=== PATIENT | male | born 1935 | race Caucasian/White ===

== ENCOUNTER 2019-11-14 00:24 | Outpatient (CLI) | payer MEDICARE, BC, SELFPAY ==
[2019-11-14 17:00] LABS: SARS-CoV-2 RNA PCR Negative
== END 2019-11-14 00:25 | disposition home or self-care (01) ==
LOC: ANHCOVIDDT 00:24
PROVIDERS: PCP Internal Medicine; Visit Provider Surgery
DX: Z01.818 Encounter for other preprocedural examination (principal); Z11.59 Encounter for screening for other viral diseases
CPT/HCPCS: 87635; C9803; U0003

== ENCOUNTER 2019-11-16 00:22 | Day surgery (SDC) | payer MEDICARE, BC, SELFPAY ==
[2019-08-12 15:27] VITALS: BMI 23.6
--- NOTE | 2019-11-15 07:53 | PM.SD ---
Same Day Admit/Disch: HPI History of Present Illness Chief complaint: Right Inguinal Hernia Narrative: Joel Carmona is a 84 year old male Who back in July noticed a right groin bulge when coughing. He has some constipation and he is not sure if this has some role in that. Patient is very active, exercises at least 3 times a week including resistance training. He has chronic diastolic heart failure and a pacemaker, chronic kidney disease stage 3, hypertension. He is taken to surgery now for repair of his right inguinal hernia. The hernia is painful when he coughs and sometimes with other activities. [facility] Past Medical History Medical History GERD without esophagitis Mixed hyperlipidemia Surgical History Surgical History Hx of appendectomy 2001 Hx of cholecystectomy 2009 S/P internal cardiac defibrillator procedure 2019 most recent one has had 4 Family History Family History Mother Family history of diabetes mellitus in first degree relative Family history of coronary artery disease Family history unknown, Onset Age: 87 Father Family history of cardiovascular disease, Onset Age: 76 Diabetes mellitus Grandparent Family history unknown Social History Social History Smoking status: Never smoker Second hand tobacco smoke exposure: No Alcohol intake: current Gender identity (if verbalized by the patient): Male Same Day Admit/Disch: Med Pre-admit Medications Home Medications Medication Instructions Recorded Confirmed Type aspirin 81 mg tablet,delayed 81 mg PO DAILY 06/13/19 11/16/19 History release metoprolol succinate 50 mg 50 mg PO DAILY 06/13/19 11/16/19 History tablet,extended release 24 hr mexiletine 250 mg capsule 250 mg PO TID 06/13/19 11/16/19 History fluticasone propionate 50 2 spray NASAL DAILY #9.9 ml 06/14/19 11/16/19 Rx mcg/actuation nasal spray,suspension lovastatin 40 mg tablet 40 mg PO QPM #90 tablet 06/23/19 11/16/19 Rx levothyroxine 50 mcg tablet 50 mcg PO DAILY #90 tablet 07/12/19 11/16/19 Rx multivitamin 1 tablet PO DAILY 07/20/19 11/16/19 History hydrocodone-acetaminophen 1 - 2 tablet PO Q6H PRN #7 tablet 11/16/19 Rx ibuprofen 600 mg PO Q6H PRN #14 tablet 11/16/19 Rx Exam Const: General: comfortable, no acute distress, alert and awake HENMT: Head: normocephalic and atraumatic Mouth: Yes Normal oral and palatal mucosa present Eyes: Conjunctivae: conjunctivae normal Pupils: Equal, round and reactive pupils present EOM: EOMs intact bilaterally Neck: Neck: normal visual inspection, no lymphadenopathy and nontender Chest: Chest palpation & inspection: Pacemaker present Resp: Effort & Inspection: normal respiratory effort Auscultation: clear to auscultation bilaterally Cardio: Rate: regular rate Rhythm: regular rhythm Heart sounds: no gallops, no murmurs and no rubs GI: Inspection: non-distended GI Palp: Yes Soft to palpation, No Tenderness to palpation present (GI), No Hepatomegaly present and No Splenomegaly present : Male General Exam: Yes hernia ( right inguinal bulge, pulses with cough, tender) Penis: Yes normal penis Scrotum: scrotum normal Testes: Testes normal Skin: Lesions: no lesions Rashes: no rashes Neuro: General: no focal motor deficits and CN's II-XI intact bilaterally Cranial nerves: Yes Equal, round and reactive pupils present, Yes Bilaterally intact EOM present, Yes facial symmetry and Yes Midline tongue present Speech: normal speech Motor exam (neuro): 5/5 motor strength present throughout and Motor abnormalities not present Extrem: General: no clubbing, cyanosis or edema and edema Psych: Affect: normal affect Thought process: Normal thought process present Insight: Tobi
[2019-11-16] VITALS (10 sets, daily range): BP systolic 141–171; BP diastolic 52–94; PULSE 79–88; RESP 12–20; TEMP 35.9–36.6; O2SAT 97–99
--- NOTE | 2019-11-16 06:33 | ECG_ITS ---
Measurements Intervals [place] Rate: 86 P: 176 VA: 318 QRS: 3 QRSD: 169 T: 0 QT: 394 QTc: 474 Interpretive Statements ELECTRONIC ATRIAL PACEMAKER RIGHT BUNDLE BRANCH BLOCK ABNORMAL ECG Electronically Signed On 11-16-2019 7:03:34 CDT by Ben Sharma D.O.
[2019-11-16] MEDS: LACTATED RINGERS 1,000 ML 30 ML IV CONT (06:50)
--- NOTE | 2019-11-16 06:56 | WPDANESEPPF ---
Anes - Initial Pre Proc Eval Procedure: Operation Date: 11/16/19 07:30 Proposed Procedures p Right Inguinal Hernia Repair - Alden Wilkerson MD Date/Time: 11/16/19 06:56 Surgeon: Alden Wilkerson MD Pre Op Diagnosis: Right Inguinal Hernia Patient Data Age: 84 Gender: M Height: 1.73 m Weight: 70.31 kg Allergies Allergy/AdvReac Type Severity Reaction Status Date / Time amiodarone Allergy Intermediate shakes Verified 11/16/19 06:35 Home Medications Medication Instructions Recorded Confirmed Type aspirin 81 mg tablet,delayed 81 mg PO DAILY 06/13/19 11/16/19 History release metoprolol succinate 50 mg 50 mg PO DAILY 06/13/19 11/16/19 History tablet,extended release 24 hr mexiletine 250 mg capsule 250 mg PO TID 06/13/19 11/16/19 History fluticasone propionate 50 2 spray NASAL DAILY #9.9 ml 06/14/19 11/16/19 Rx mcg/actuation nasal spray,suspension lovastatin 40 mg tablet 40 mg PO QPM #90 tablet 06/23/19 11/16/19 Rx levothyroxine 50 mcg tablet 50 mcg PO DAILY #90 tablet 07/12/19 11/16/19 Rx multivitamin 1 tablet PO DAILY 07/20/19 11/16/19 History Patient hx anesthesia problems: none Family hx anesthesia problems: none PMFSH Past Medical History Medical History GERD without esophagitis Mixed hyperlipidemia Surgical History Surgical History Hx of appendectomy 2001 Hx of cholecystectomy 2009 S/P internal cardiac defibrillator procedure 2019 most recent one has had 4 Family History Family History Mother Family history of diabetes mellitus in first degree relative Family history of coronary artery disease Family history unknown, Onset Age: 87 Father Family history of cardiovascular disease, Onset Age: 76 Diabetes mellitus Grandparent Family history unknown Social History Social History Smoking status: Never smoker Second hand tobacco smoke exposure: No Alcohol intake: current Gender identity (if verbalized by the patient): Male Anes - Eval Final PreProcedure Day of Procedure 11/16/19 06:56 Patient weight: normal Heart: regular rate and rhythm Lungs: clear to auscultation and normal air movement Airway: Mallampati scale class II Neurological: alert and oriented Last oral intake: >/= 8 hours ASA classification: IV Emergent: no Anesthetic plan: proceed Anesthesia type and monitoring: general GIVS and standard monitoring Informed Consent: The patient's anesthetic plan and its attendant risks and benefits were discussed with the patient/family/POA. Questions were solicited and answers provided to the satisfaction of the patient/family/POA.
--- NOTE | 2019-11-16 06:58 | WPDHPUPDATE1 ---
History and Physical Update Update Date/Time: 11/16/19 06:58 History and Physical has been reviewed, including an updated exam of the patient. There are NO changes in the patient's condition. Risks, benefits, and alternatives have been discussed and questions answered. Patient agrees to proceed with procedure.
[2019-11-16] MEDS: ceFAZolin 2 GM/D5W 50 ML 2 GM/50 ML BAG IVPB (07:36)
--- NOTE | 2019-11-16 10:08 | SUR.PHASEII ---
1007 - dr. waterman in room talking with pt.
--- NOTE | 2019-11-16 10:11 | P.OP_ITS ---
Procedure Note - Detailed Date of procedure: 11/16/19 Pre-op diagnosis: Right Inguinal Hernia Right inguinal hernia Post-op diagnosis: other (Direct hernia) Procedure performed: Repair of Right inguinal hernia with 8 cm Parietex hernia mesh system Description of procedure: The patient was taken to surgery and IV sedation was administered. The right groin and genitalia were prepped and draped. Proposed incision was marked on the skin. Local was infiltrated into the skin and the deeper subcutaneous tissues. Incision was made and deepened through the subcutaneous. Crossing veins were cauterized and divided. Dissection was carried through Rossi's fascia down to the external oblique aponeurosis. The aponeurosis was exposed as was the external ring. Additional local anesthesia was infiltrated deep to the aponeurosis in the area of the spermatic cord and inguinal canal contents. The aponeurosis was opened laterally and extended medially through the external ring. The leaves of the aponeurosis were diss ected free from the spermatic cord. The ileoinguinal nerve was carefully preserved throughout the dissection and was left attached to the spermatic cord. The cord was then mobilized medially on a [place] drain. The cord was dissected back to the internal ring. Dissection was then carried out the hernia sac from the cord. This was a direct hernia near the inferior epigastric vessels. It was dissected back to its neck. The hernia sac was scored through the transversalis fascia circumferentially just above the neck. The sac was dunked into the retroperitoneum. A 8 centimeter Parietex [place] was chosen. It was folded to form a plug. It was placed in the defect. The edges were sutured to the transversalis fascia with interrupted 3 0 Vicryl suture. The hernia defect was then partially closed with some additional 3 0 Vicryl suture. Patch was then cut to the appropriate size and placed over the inguinal canal floor. The lateral leaves were passed beyond the cord. The cord and ileoinguinal nerve were then laid over the patch. The external oblique aponeurosis was closed with interrupted 3 0 Vicryl suture. Rossi's fascia was closed with interrupted 3 0 Vicryl suture. The subcutaneous was closed with interrupted 4 0 Vicryl suture. Four 0 Vicryl subcuticular skin sutures were placed. The skin was closed finally with a running 4 0 Monocryl skin suture. The wound was dressed with Exofin surgical adhesive. The patient was awakened and taken to recovery in good condition. Sponge and needle counts were correct x2. Implants: 8 cm Parietex hernia mesh Anesthesia: MAC and local (0.5% Marcaine with Exparel) Surgeon: Alden Wilkerson MD Airways Control Specialist: Davian HARGROVE Estimated blood loss (mL): 5 Drains: No Packing: No Pathology: none sent Complications: None Condition: stable Disposition: PACU Findings: Diirect inguinal hernia. No sliding hernia was noted.
--- NOTE | 2019-11-16 10:22 | SUR.PHASEII ---
1015 - daughter updated on pt's status. will continue to monitor rt side leg weakness. dr. guevara arizmendi.
--- NOTE | 2019-11-16 11:07 | SUR.PHASEII ---
1100 - pt assisted to bathroom. rt leg still slightly weak. will continue to monitor. 1107 - daughter called with update.
--- NOTE | 2019-11-16 14:23 | SUR.PHASEII ---
1300 - dr. waterman updated. pt okay to go home.
== END 2019-11-16 13:50 | disposition home or self-care (01) ==
PROVIDERS: PCP Internal Medicine; Visit Provider Surgery
PROC: (CPT 49505; principal; 2019-11-16 07:30)
DX: K40.90 Unilateral inguinal hernia, without obstruction or gangrene, not specified as recurrent (principal); E78.2 Mixed hyperlipidemia; K21.9 Gastro-esophageal reflux disease without esophagitis; I47.2 Ventricular tachycardia; I13.0 Hypertensive heart and chronic kidney disease with heart failure and stage 1 through stage 4 chronic kidney disease, or unspecified chronic kidney disease; N18.3 Chronic kidney disease, stage 3 (moderate); I50.9 Heart failure, unspecified; D64.9 Anemia, unspecified; M48.061 Spinal stenosis, lumbar region without neurogenic claudication; Z95.810 Presence of automatic (implantable) cardiac defibrillator; Z79.82 Long term (current) use of aspirin
CPT/HCPCS: 49505; 93005; A9270; C1781; C9290; J0690; J1100; J2405; J2704; J3010; J7120

== ENCOUNTER → 2021-09-21 00:12 | Outpatient (CLI) | payer MEDICARE, BC, SELFPAY ==
[2021-09-21 14:09] LABS: Influenza A QL RT-PCR Negative (Negative); Influenza B QL RT-PCR Negative (Negative); SARS-CoV-2 RNA PCR Negative
== END ==
PROVIDERS: PCP Family Medicine; Visit Provider Family Medicine
DX: R68.89 Other general symptoms and signs (principal); Z20.822 Contact with and (suspected) exposure to COVID-19
CPT/HCPCS: 87502; C9803; U0003; U0005

== ENCOUNTER 2021-12-12 13:42 | Outpatient (CLI) | payer MEDICARE, BC, SELFPAY ==
--- NOTE | ~2021-12-12 | CT_ITS ---
EXAMINATION: CT cervical spine wo con DATE: 12/12/2021 14:02 INDICATION: New right arm radicular nerve pain and weakness TECHNIQUE: Computed tomography (CT) of the cervical spine was performed without intravenous contrast. Automated exposure control and iterative reconstruction technique were employed. Exam dose: 275.70 mGy-cm total exam DLP. COMPARISON: None FINDINGS: There is dextroscoliosis and reversal of cervical curvature. C1 and C2 are normally aligned and the odontoid process is intact. There is mild to moderate degenerative disc disease at C2-3. There is mild degenerative disc disease and minimal anterolisthesis at C3-4. There is mildly severe degenerative disc disease and minimal anterolisthesis at C4-5. There is severe degenerative disc disease and 1.8 mm retrolisthesis at C5-6. There is severe degenerative disc disease at C6-7 and moderate degenerative disc disease at C7-T1. There is prominent degenerative changes apophyseal joints, producing severe on the left at C2-3, C3- 4 and C4-5. There is uncovertebral joint spurring throughout the cervical spine, particularly severe on the right at C5-6.. IMPRESSION: Levoscoliosis and reversal cervical curvature Multilevel degenerative disc disease throughout the cervical spine, most severe at C5-6 and C6-7, wit h 1.8 mm retrolisthesis at C5-6 Prominent degenerative change at the apophyseal and uncovertebral joints throughout the cervical spin e, the apophyseal joint spurring particularly prominent on the left at C2-3, C3-C4 and C4-5, the unco vertebral joint spurring most prominent on the right at C5-6 Reviewed, dictated and finalized at [facility]. Reviewed, dictated and finalized at [facility]. IMPRESSION: Levoscoliosis and reversal cervical curvature Multilevel degenerative disc disease throughout the cervical spine, most severe at C5-6 and C6-7, with 1.8 mm retrolisthesis at C5-6 Prominent degenerative change at the apophyseal and uncovertebral joints throug hout the cervical spine, the apophyseal joint spurring particularly prominent o n the left at C2-3, C3-C4 and C4-5, the uncovertebral joint spurring most promi nent on the right at C5-6
== END 2021-12-12 13:43 | disposition home or self-care (01) ==
PROVIDERS: PCP Family Medicine; Visit Provider Family Medicine
DX: M47.813 Spondylosis without myelopathy or radiculopathy, cervicothoracic region (principal); M79.2 Neuralgia and neuritis, unspecified
CPT/HCPCS: 72125

== ENCOUNTER 2022-04-08 08:47 | Outpatient (CLI) | payer MEDICARE, BC, SELFPAY | END 2022-04-08 08:48 | disposition home or self-care (01) | LOC: ANHAUDIO 08:49 | PROVIDERS: PCP Family Medicine; Visit Provider Family Medicine | DX: H90.3 Sensorineural hearing loss, bilateral (principal) | CPT/HCPCS: 92557; 92567 ==

== ENCOUNTER 2022-08-12 13:38 | Outpatient (CLI) | payer MEDICARE, BC, SELFPAY | END 2022-08-12 13:39 | disposition home or self-care (01) | LOC: ANHGOSHLAB 13:40 | PROVIDERS: PCP Family Medicine; Visit Provider Family Medicine | DX: E03.9 Hypothyroidism, unspecified (principal); Z13.29 Encounter for screening for other suspected endocrine disorder | CPT/HCPCS: 36415; 84443 ==

== ENCOUNTER 2022-09-24 07:50 | Emergency (ER) | payer MEDICARE, BC, SELFPAY ==
[2022-09-24] VITALS (13 sets, daily range): BP systolic 161–168; BP diastolic 82–105; PULSE 80–91; RESP 14–24; TEMP 36.4; O2SAT 89–100
--- NOTE | ~2022-09-24 | XR_ITS ---
EXAMINATION: XR lumbar spine 2-3V DATE: 09/24/2022 08:49 INDICATION: Low back pain. TECHNIQUE: 3 views of lumbar spine were obtained. COMPARISON: Chest 2 views 09/02/2018, CT lumbar spine 10/16/2016 FINDINGS: There is 12 degrees dextroscoliosis of lumbar spine. Vertebral body heights are normal. S1 is a transitional segment. There is mildly decreased disc height at L3-L4, moderately decreased disc height at L4-L5, and severely decreased disc height at L5-S1 and S1-S2. There is multilevel severe fa cet joint osteoarthritis. Surgical clips in the right upper quadrant are likely from cholecystectomy. IMPRESSION: 1. Severe lumbar spondylosis. 2. Lumbar dextroscoliosis. Reviewed, dictated and finalized at location A.
[2022-09-24] MEDS: ACETAMINOPHEN 325 MG TABLET 650 MG PO (08:46)
--- NOTE | 2022-09-24 10:22 | ED.BACK ---
HPI - Back Pain/Injury General Chief Complaint: Back Pain/Injury Stated Complaint: flank pain Time Seen by Provider: 09/24/22 08:05 History of Present Illness HPI Narrative: Patient is an 87-year-old male who presents ER with low back pain. Began yesterday. Takes Tylenol for pain without improvement. No fevers or chills or sweats. Denies trauma. No numbness or tingling to his legs or groin. No weight loss. Denies alleviating factors other than rest. Symptoms are worsened with physical movements. Denies any urinary complaints for me but did report some urgency for triage nurse. Patient has bruising to his right lower back but not his left back where he is having his pain. Related Data Home Medications Medication Instructions Recorded Confirmed aspirin 81 mg tablet,delayed 81 mg PO DAILY 06/13/19 08/12/22 release (Adult Aspirin Regimen) mexiletine 250 mg capsule 250 mg PO TID 06/13/19 08/12/22 multivitamin (Multiple Vitamins 1 tablet PO DAILY 07/20/19 08/12/22 tablet) lovastatin 40 mg tablet 40 mg PO QHS 08/12/22 08/12/22 metoprolol succinate 50 mg 25 mg PO DAILY 08/12/22 08/12/22 tablet,extended release 24 hr Allergies Allergy/AdvReac Type Severity Reaction Status Date / Time amiodarone Allergy Intermediate shakes Verified 09/24/22 07:55 Review of Systems Constitutional: Constitutional: Denies chills and Denies fever(s) Gastrointestinal: Gastrointestinal: Denies abdominal pain, Denies nausea and Denies vomiting Genitourinary: Genitourinary: Reports as per HPI Musculoskeletal: Musculoskeletal: Reports back pain, Denies arthralgias and Denies joint swelling Integumentary/Breasts: Skin/Breast: Denies erythema and Denies rash Neurologic: Denies focal weakness and Denies numbness [facility] Past Medical History Medical History BMI 22.0-22.9, adult Cardiac arrhythmia CHF (congestive heart failure) CKD (chronic kidney disease) GERD without esophagitis History of ventricular tachycardia HTN (hypertension) Hypothyroidism (acquired) Mixed hyperlipidemia Nephropathy RITA on CPAP Pacemaker Right inguinal hernia Surgical History Surgical History History of right inguinal hernia 11/16/19 Hx of appendectomy 2002 Hx of cholecystectomy 2009 S/P internal cardiac defibrillator procedure 2019 most recent one has had 4 Family History Family History Mother Family history of diabetes mellitus in first degree relative Family history of coronary artery disease Family history unknown, Onset Age: 87 Father Family history of cardiovascular disease, Onset Age: 76 Diabetes mellitus Grandparent Family history unknown Social History Social History Smoking status: Former smoker Second hand tobacco smoke exposure: No Alcohol intake: current Lack of Transportation: No Lack of Food: Never True Current Housing: I Have Housing Concerned About Future Housing: No Difficulty Paying Gas/Electric Bills: No Difficulty Paying for Meds: No Currently Unemployed: No Education: High School Diploma/GED Difficulty w/ Childcare or Family Care: No Living arrangements: alone Occupation/Education: retired Gender identity (if verbalized by the patient): Male Exam Narrative: GENERAL: Well-appearing, well-nourished, and in no acute distress. HEAD: Normocephalic, atraumatic. CHEST: Clear to auscultation. No respiratory distress. HEART: Regular rate and rhythm. Normal peripheral pulses. ABDOMEN: Soft, nontender, nondistended. Back: No reproducible midline tenderness of the T/L-spine. There is some lateral low back pain in the level of L2 on the left side without bruising or abrasion. There is a older bruise with yellowing to the right lower back
== END 2022-09-24 11:07 | disposition home or self-care (01) ==
PROVIDERS: Emergency Provider Emergency Medicine; PCP Family Medicine
DX: M54.50 Low back pain, unspecified (principal); I50.9 Heart failure, unspecified; I13.0 Hypertensive heart and chronic kidney disease with heart failure and stage 1 through stage 4 chronic kidney disease, or unspecified chronic kidney disease; N18.9 Chronic kidney disease, unspecified; E03.9 Hypothyroidism, unspecified; E78.2 Mixed hyperlipidemia; K21.9 Gastro-esophageal reflux disease without esophagitis; G47.33 Obstructive sleep apnea (adult) (pediatric); Z90.49 Acquired absence of other specified parts of digestive tract; Z95.810 Presence of automatic (implantable) cardiac defibrillator; Z87.891 Personal history of nicotine dependence; Z79.82 Long term (current) use of aspirin; M47.816 Spondylosis without myelopathy or radiculopathy, lumbar region
CPT/HCPCS: 72100; 99283; A9270

== ENCOUNTER 2022-09-24 19:22 | Inpatient (IN) | payer MEDICARE, BC, SELFPAY ==
--- NOTE | ~2022-09-24 | CT_ITS ---
EXAMINATION: CTA chest abdomen pelvis DATE: 09/24/2022 22:17 INDICATION: Lower back pain . TECHNIQUE: Computed tomography (CT) of the chest, abdomen, and pelvis was performed with 100 mL Omnip aque-350 intravenous contrast, with arterial timing. Volume rendered images performed by the celi stewart on a separate workstation. Automated exposure control and iterative reconstruction technique wer e employed. The dose-length product was 573.07 mGy-cm. COMPARISON: HRCT 08/06/2009 CT abdomen 04/21/2008 FINDINGS: CHEST: Thoracic aorta: No significant dilation. Mild arch calcification. Lung parenchyma and airways: Senescent changes. Calcified pulmonary granulomas. Dependent atelectasis /basilar scar. Thoracic inlet, axillae and chest wall: No thyroid or soft tissue mass. No axillary lymphadenopathy. Left-sided pacemaker. Mediastinum: No mass or lymphadenopathy. Heart and pericardium: Cardiomegaly. No pericardial effusion. Coronary artery calcifications: Mild. Pleura: No effusion or mass. Thoracic bones: No acute osseous finding in the chest. ABDOMEN/PELVIS: Liver: Normal. Biliary/Gallbladder: Gallbladder is absent. No bile duct dilation. Pancreas: Fatty infiltration Spleen: Normal. Adrenals:No mass. Kidneys: Bilateral cortical thinning. Nonobstructing right lower pole punctate calcification. Mild le ft hydronephrosis with periureteral stranding and stranding at the renal hilum and renal pelvis. Bila teral perinephric stranding, greater on the left. Subtle delayed nephrogram or patchy cortical enhanc ement in the left kidney. GI tract: Distal esophageal and gastric wall edema No small or large bowel dilation. Appendix not vis ualized, likely surgically absent. Diverticulosis without diverticulitis. Mesentery/Peritoneum: No ascites, mass, or free air. Retroperitoneum: No mass Atherosclerotic abdominal aortic and/or arterial calcifications. Severe sten osis of the proximal celiac artery. Severe short segment stenosis of the left renal artery. The right kidney is supplied by 3 accessory arteries, two of which have severe stenoses. Severe stenosis of th e proximal FITZ. Pelvis: Prostatomegaly. Anterior and superiorly directed outpouching off to the urinary bladder may r epresent a bladder diverticulum or urachal remnant. Mild bladder wall thickening Soft Tissues: Soft tissues and body wall unremarkable. Abdominopelvic bones: No acute osseous finding in the abdomen/pelvis. IMPRESSION: No aortic dissection or aneurysm. Esophagitis/gastritis. Mild left hydronephrosis with inflammatory c hanges of the left kidney and collecting system, concerning for ascending infection and pyelonephriti s. Significant arterial stenoses in the celiac artery, bilateral renal arteries, and inferior mesente wilma artery. Reviewed, dictated and finalized at location K. IMPRESSION: No aortic dissection or aneurysm. Esophagitis/gastritis. Mild left hydronephros is with inflammatory changes of the left kidney and collecting system, concerni ng for ascending infection and pyelonephritis. 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
[2022-09-24 19:25] VITALS: BP 138/92; PULSE 86; RESP 19; TEMP 36.4; O2SAT 95
[2022-09-24 20:46] LABS: Basophils Absolute Auto 0.1 K/mm3 (0.0-0.1); Basophils Percent Auto 0.4 % (0.2-1.2); Eosinophils Absolute Auto 0.1 K/mm3 (0-0.3); Eosinophils Percent Auto 0.6 % (0-4.4); Hematocrit 43.6 % (42.0-52.0); Hemoglobin 14.2 g/dL (14.0-18.0); Immature Granulocyte Absolute 0.06 K/mm3 (0.00-0.031); Immature Granulocyte Percent A 0.5 % (0-0.5); Lymphocytes Absolute Auto 1.34 K/mm3 (0.9-3.2); Lymphocytes Percent Auto 10.5 % (18.3-44.2); Mean Corpuscular HGB Conc 32.6 g/dl (32-36); Mean Corpuscular Hemoglobin 31.1 pg (26-34); Mean Corpuscular Volume 95.4 fl (80-100); Mean Platelet Volume 9.6 fl (7.4-10.4); Monocytes Absolute Auto 1.6 K/mm3 (0.1-0.6); Monocytes Percent Auto 12.6 % (2.6-8.5); Neutrophils Absolute Auto 9.6 K/mm3 (1.3-6.7); Neutrophils Percent Auto 75.4 % (45.5-73.1); Platelet Count Result 201 k/mm3 (150-375); Red Blood Count 4.57 M/mm3 (4.6-6.20); Red Cell Distribution Width 13.5 % (11.5-14.5); White Blood Count 12.7 K/mm3 (4.5-10.0)
[2022-09-24 20:57] LABS: INR 1.2; Partial Thromboplastin Time 32.1 SECONDS (22.3-36.8)
--- NOTE | 2022-09-24 21:01 | ED.GENADULT ---
HPI - General Adult General Chief complaint: Back Pain/Injury Stated complaint: back pain Time Seen by Provider: 09/24/22 19:45 History of Present Illness HPI narrative: This is an 87-year-old male presenting with lower back pain. He was seen and evaluated in emergency department earlier today and discharged with symptomatic treatment. Patient filled his prescriptions around 2 and took the medication but still had some pain. patient says his pain started 2 nights ago while he was sitting in her climber. Is an achy pain in the left lower back that is nonradiating, 9/10 intensity and comes and goes. He has never experienced pain like this before And there are no alleviating factors. He says it is hard for him to lay still in bed for more than 3-5 minutes at a time. Denies fevers, trauma, urinary difficulty or bowel incontinence. Related Data Home Medications Medication Instructions Recorded Confirmed aspirin 81 mg tablet,delayed 81 mg PO DAILY 06/13/19 08/12/22 release (Adult Aspirin Regimen) mexiletine 250 mg capsule 250 mg PO TID 06/13/19 08/12/22 multivitamin (Multiple Vitamins 1 tablet PO DAILY 07/20/19 08/12/22 tablet) lovastatin 40 mg tablet 40 mg PO QHS 08/12/22 08/12/22 metoprolol succinate 50 mg 25 mg PO DAILY 08/12/22 08/12/22 tablet,extended release 24 hr Allergies Allergy/AdvReac Type Severity Reaction Status Date / Time amiodarone Allergy Intermediate shakes Verified 09/24/22 07:55 [facility] Past Medical History Medical History BMI 22.0-22.9, adult Cardiac arrhythmia CHF (congestive heart failure) CKD (chronic kidney disease) GERD without esophagitis History of ventricular tachycardia HTN (hypertension) Hypothyroidism (acquired) Mixed hyperlipidemia Nephropathy RITA on CPAP Pacemaker Right inguinal hernia Surgical History Surgical History History of right inguinal hernia 11/16/19 Hx of appendectomy 2002 Hx of cholecystectomy 2009 S/P internal cardiac defibrillator procedure 2019 most recent one has had 4 Family History Family History Mother Family history of diabetes mellitus in first degree relative Family history of coronary artery disease Family history unknown, Onset Age: 87 Father Family history of cardiovascular disease, Onset Age: 76 Diabetes mellitus Grandparent Family history unknown Social History Social History Smoking status: Former smoker Second hand tobacco smoke exposure: No Alcohol intake: current Lack of Transportation: No Lack of Food: Never True Current Housing: I Have Housing Concerned About Future Housing: No Difficulty Paying Gas/Electric Bills: No Difficulty Paying for Meds: No Currently Unemployed: No Education: High School Diploma/GED Difficulty w/ Childcare or Family Care: No Living arrangements: alone Occupation/Education: retired Gender identity (if verbalized by the patient): Male Exam Narrative: APPEARANCE: No apparent distress. Head: atraumatic. EYES: EOMI, NOSE: Atraumatic NECK: Trachea midline RESPIRATORY: No increased rate of breathing CARDIOVASCULAR: RRR, ABDOMINAL: Abdomen is soft nontender no guarding or rebound. No palpable masses MUSCULOSKELETAl: no tenderness to palpation along the spine. No tenderness along the sacroiliac junction or lower back. Straight leg was negative on both sides. No pain on range of motion of the hips or knees. NEURO: Alert. Moving 4/4 extremities SKIN:: Warm, dry. Normal color PSYCHIATRIC: Normal affect Course Vital Signs Vital signs: Vital Signs Temperature 97.6 F 09/24/22 19:25 Pulse Rate 86 09/24/22 19:25 Respiratory Rate 09/24/22 19:25 Blood Pressure 138/92 H 09/24/22 19:25 Puls
[2022-09-24 21:03] LABS: Lactic Acid Reflex 2.2 mmol/L (0.7-2.0)
[2022-09-24 21:34] LABS: Alanine Aminotransferase 43 U/L (6-50); Albumin Level 4.2 g/dL (3.5-5.1); Alkaline Phosphatase 134 U/L (38-126); Anion Gap 8 mmol/L (8-16); Aspartate Amino Transferase 54 U/L (17-59); Bilirubin,Total 1.3 mg/dL (0.2-1.3); Blood Urea Nitrogen 39 mg/dL (9-20); Calcium 8.8 mg/dL (8.4-10.2); Carbon Dioxide 24 mmol/L (22-30); Chloride 105 mmol/L (98-107); Estimated CRCL calculation 30 ml/min; Estimated Glomerular Filt Rate 44; Glucose 98 mg/dL (65-110); Lipase 111 U/L (23-300); Magnesium 2.3 mg/dL (1.6-2.3); Potassium 4.8 mmol/L (3.4-5.0); Sodium 137 mmol/L (137-145)
[2022-09-24 22:07] LABS: Appearance Urine Cloudy (Clear); Bacteria Urine None Seen /hpf; Bilirubin Urine Negative (Negative); Blood Urine 3+ (Negative); Color Urine Yellow (Yellow); Glucose Urine UA Negative (Negative); Hyaline Casts Urine Present /lpf; Ketones Urine Negative (Negative); Leukocyte Esterase Ur 1+ LEU/UL (Negative); Nitrate Urine Negative (Negative); Non Pathogenic Casts 0-2; Protein Urine 1+ mg/dL (Negative); RBC Urine >100 /hpf (0-2); Specific Grav Ur 1.017 (1.001-1.035); Squamous Epithelial Cell Urine Occasional /hpf (Few); Urobilinogen Urine 0.2 mg/dL (<2.0); WBC Urine 0-5 /hpf
[2022-09-24 22:14] LABS: Add Urine Microscopic? YES
--- NOTE | 2022-09-24 22:57 | PM.IMHP ---
H&P: HPI History of Present Illness Date/Time: 09/24/22 22:57 Chief Complaint: Flank pain Narrative: This is an 87-year-old male with past medical history significant for congestive heart failure, chronic kidney disease, GERD, hypertension, hypothyroidism. Patient presents to the emergency room due to left flank pain, fevers, chills, generalized malaise, body aches and pains. Preliminary workup was significant for urinalysis with numerous RBCs present. A CT of chest abdomen and pelvis was reported as: EXAMINATION: CTA chest abdomen pelvis DATE: 09/24/2022 22:17 INDICATION: Lower back pain . TECHNIQUE: Computed tomography (CT) of the chest, abdomen, and pelvis was performed with 100 mL Omnipaque-350 intravenous contrast, with arterial timing. Volume rendered images performed by the technologist on a separate workstation. Automated exposure control and iterative reconstruction technique were employed. The dose-length product was 573.07 mGy-cm. COMPARISON: HRCT 08/06/2009 CT abdomen 04/21/2008 FINDINGS: CHEST: Thoracic aorta: No significant dilation. Mild arch calcification. Lung parenchyma and airways: Senescent changes. Calcified pulmonary granulomas. Dependent atelectasis/basilar scar. Thoracic inlet, axillae and chest wall: No thyroid or soft tissue mass. No axillary lymphadenopathy. Left-sided pacemaker. Mediastinum: No mass or lymphadenopathy. Heart and pericardium: Cardiomegaly. No pericardial effusion. Coronary artery calcifications: Mild. Pleura: No effusion or mass. Thoracic bones: No acute osseous finding in the chest. ABDOMEN/PELVIS: Liver: Normal.? Biliary/Gallbladder: Gallbladder is absent. No bile duct dilation. Pancreas: Fatty infiltration Spleen: Normal. Adrenals:No mass. Kidneys: Bilateral cortical thinning. Nonobstructing right lower pole punctate calcification. Mild left hydronephrosis with periureteral stranding and stranding at the renal hilum and renal pelvis. Bilateral perinephric stranding, greater on the left. Subtle delayed nephrogram or patchy cortical enhancement in the left kidney. GI tract: Distal esophageal and gastric wall edema No small or large bowel dilation. Appendix not visualized, likely surgically absent. Diverticulosis without diverticulitis. Mesentery/Peritoneum: No ascites, mass, or free air. Retroperitoneum: No mass Atherosclerotic abdominal aortic and/or arterial calcifications. 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 Severe short segment stenosis of the left renal artery. The right kidney is supplied by 3 accessory arteries, two of which have severe stenoses. Severe stenosis of the proximal FITZ. Pelvis: Prostatomegaly. Anterior and superiorly directed outpouching off to the urinary bladder may represent a bladder diverticulum or urachal remnant. Mild bladder wall thickening Soft Tissues: Soft tissues and body wall unremarkable. Abdominopelvic bones:? No acute osseous finding in the abdomen/pelvis. IMPRESSION: No aortic dissection or aneurysm. Esophagitis/gastritis. Mild left hydronephrosis with inflammatory changes of the left kidney and collecting system, concerning for ascending infection and pyelonephritis. 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 Review of Systems Review of Systems: Left flank pain, generalized malaise, fevers, rigors, chills. Constitutional: Constitutional: Reports chills, Denies fatigue, Reports fever(s), Denies lethargy, Reports malaise, Denies night sweats, Reports poor appetite and Reports weakness Eyes: Eyes: Denies change in vision ENT: Denies dysphagia and Denies odynophagia Cardiovascular: Cardiovascular: Denies chest pain, Denies radiating jaw, neck or arm pain and Denies palpitations Respiratory: Respiratory: Denies chest congestion, Denies cough, Denies pain on inspiration and Denies dyspnea Gastrointestinal: Gastrointestinal: Denies abdominal pain, Denies dyspepsia, Wilfred
[2022-09-24] MEDS: SODIUM CHLORIDE 0.9% IV 2,000 ML 999 ML IV CONT (23:03)
[2022-09-24 23:43] LABS: Reflex Lactic Acid Yes or No Add Lactic
[2022-09-24 23:55] VITALS: BP 130/96; PULSE 84; RESP 16; O2SAT 98
--- NOTE | 2022-09-25 00:26 | ADMGEN ---
This patient, Joel Carmona, was admitted to 3 Med Surg Room 326-01. Patient/family oriented to hospital policies and general routines including ID bracelet, bed and alarms, visiting hours, pain management, procedures, bathroom and other care routines, personal items, smoking policy, room service/diet, and visiting hours. Information on how to activate the Rapid Response Team has been discussed. Patient/Family are encouraged to report perceived risks to care and to ask questions if they do not understand what they are told or what they should do.
[2022-09-25 00:29] VITALS: BP 140/66; PULSE 94; RESP 16; TEMP 36.1; O2SAT 100; BMI 21.9
[2022-09-25 01:21] LABS: Lactic Acid 1.3 mmol/L (0.7-2.0)
[2022-09-25 05:49] VITALS: BP 132/95; PULSE 88; RESP 18; TEMP 36.4; O2SAT 98
[2022-09-25] MEDS: LEVOTHYROXINE SODIUM 50 MCG TABLET PO (05:53)
[2022-09-25] MEDS: cycloSPORINE 0.4 ML OPHTH SOLUTION 1 DROP EACH EYE ×2 (08:42→20:13)
[2022-09-25 08:43] VITALS: PULSE 81
[2022-09-25] MEDS: ASPIRIN 81 MG ENTERIC TABLET PO (08:43)
[2022-09-25] MEDS: METOPROLOL SUCCINATE EXT REL 25 MG TABCR PO (08:43)
[2022-09-25 14:00] VITALS: BP 131/64; PULSE 79; RESP 18; TEMP 36.4; O2SAT 100
--- NOTE | 2022-09-25 14:44 | PM.IMPN ---
Progress Note: A&P Assessment and Plan (1) Pyelonephritis: Code(s): N12 - Tubulo-interstitial nephritis, not specified as acute or chronic Status: Acute Assessment and Plan: CTA of the abdomen showed mild left hydronephrosis with Faby ureteral stranding and stranding at the renal hilum and pelvis. Also with bilateral perinephric stranding greater on the left. Patchy cortical enhancement left kidney. Urinalysis showed 3+ blood and greater than 100 red cells. No white cells but 1+ 2+ esterase. He was started on Rocephin for possible pyelonephritis. No urine culture was obtained. No blood cultures obtained. Will add urine culture but patient already been on antibiotics so unclear if this would be helpful. No fevers but white count was elevated on admission at 12.7 K. He has chronic CKD and creatinine here is 1.5 on admission. Old values from 2018 but nothing more recent. Probably at baseline. Will continue to trend. (2) CKD (chronic kidney disease): Qualifiers: Chronic kidney disease stage: stage 3 (moderate) Qualified Code(s): N18.3 - Chronic kidney disease, stage 3 (moderate) Code(s): N18.9 - Chronic kidney disease, unspecified Status: Chronic Assessment and Plan: As above. Creatinine 1.5 on admission. Continue to trend. (3) CHF (congestive heart failure): Qualifiers: Heart failure type: unspecified Heart failure chronicity: unspecified Qualified Code(s): I50.9 - Heart failure, unspecified Code(s): I50.9 - Heart failure, unspecified Status: Chronic Assessment and Plan: Patient has a history of CHF. No old Echo reports listed. Euvolemic. Follow. (4) RITA on CPAP: Code(s): G47.33 - Obstructive sleep apnea (adult) (pediatric); Z99.89 - Dependence on other enabling machines and devices Status: Acute Assessment and Plan: CPAP at nighttime. Order auto-CPAP (5) HTN (hypertension): Qualifiers: Hypertension type: essential hypertension Qualified Code(s): I10 - Essential (primary) hypertension Code(s): I10 - Essential (primary) hypertension Status: Chronic Assessment and Plan: Patient's blood pressure was reviewed on 09/25 Blood pressure remains well controlled. Will continue current medications. (6) Spinal stenosis: Qualifiers: Spinal region: lumbar Neurogenic claudication status: without neurogenic claudication Qualified Code(s): M48.061 - Spinal stenosis, lumbar region without neurogenic claudication Code(s): M48.00 - Spinal stenosis, site unspecified Status: Acute Assessment and Plan: Unchanged. Fall risk precautions. PT/OT (7) GERD without esophagitis: Code(s): K21.9 - Gastro-esophageal reflux disease without esophagitis Status: Acute Assessment and Plan: Imaging showing distal esophageal and gastric wall edema - possible esophagitis/gastritis. 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 Continue to monitor (9) PAD (peripheral artery disease): Code(s): I73.9 - Peripheral vascular disease, unspecified Status: Acute Assessment and Plan: CTA shows severe stenosis of the proximal celiac artery, severe short segment stenosis of the left renal artery, 2/3 right renal artery stenosis, severe stenosis of the proximal FITZ. Continue ASA. LFTs okay so will add Lipitor. Subjective Date/time seen: 09/25/22 14:44 Interval history: 87yo male with CHF, CKD, RITA and HTN here for left falnk pain found to have pyelonephritis. Pain is much improved. No chest pain shortness of breath. No dysuria or hematuria. Exam Narrative: AF 97.5 131/64 79 18 100% ra Gen -
--- NOTE | 2022-09-25 16:13 | PCRCNOTE ---
Patient has not worn home CPAP in 4 years & does not wish to use our unit.
[2022-09-25 16:45] VITALS: PULSE 91
[2022-09-25] MEDS: MEXILETINE HCL 200 MG CAPSULE PO (16:45)
[2022-09-25] MEDS: PANTOPRAZOLE 40 MG TABLET PO (20:14)
[2022-09-25 21:21] VITALS: BP 111/61; PULSE 79; RESP 16; TEMP 36.6; O2SAT 97
[2022-09-26 05:37] VITALS: BP 122/59; PULSE 83; RESP 16; TEMP 36.3; O2SAT 99
[2022-09-26] MEDS: LEVOTHYROXINE SODIUM 50 MCG TABLET PO (06:33)
[2022-09-26 06:51] LABS: Basophils Percent Auto 0.5 % (0.2-1.2); Eosinophils Absolute Auto 0.3 K/mm3 (0-0.3); Eosinophils Percent Auto 3.5 % (0-4.4); Hematocrit 40.2 % (42.0-52.0); Hemoglobin 12.9 g/dL (14.0-18.0); Immature Granulocyte Absolute 0.03 K/mm3 (0.00-0.031); Immature Granulocyte Percent A 0.4 % (0-0.5); Lymphocytes Absolute Auto 1.43 K/mm3 (0.9-3.2); Lymphocytes Percent Auto 18.3 % (18.3-44.2); Mean Corpuscular HGB Conc 32.1 g/dl (32-36); Mean Corpuscular Volume 96.6 fl (80-100); Mean Platelet Volume 9.6 fl (7.4-10.4); Monocytes Percent Auto 13.3 % (2.6-8.5); Platelet Count Result 161 k/mm3 (150-375); Red Blood Count 4.16 M/mm3 (4.6-6.20); Red Cell Distribution Width 13.7 % (11.5-14.5); White Blood Count 7.8 K/mm3 (4.5-10.0)
[2022-09-26 07:59] LABS: Albumin Level 3.3 g/dL (3.5-5.1); Anion Gap 3 mmol/L (8-16); Blood Urea Nitrogen 28 mg/dL (9-20); Calcium 8.6 mg/dL (8.4-10.2); Carbon Dioxide 28 mmol/L (22-30); Chloride 108 mmol/L (98-107); Estimated CRCL calculation 36 ml/min; Estimated Glomerular Filt Rate 57; Glucose 82 mg/dL (65-110); Magnesium 2.1 mg/dL (1.6-2.3); Phosphorus 3.2 mg/dL (2.5-4.5); Potassium 4.6 mmol/L (3.4-5.0); Sodium 139 mmol/L (137-145)
[2022-09-26 09:02] VITALS: PULSE 80
[2022-09-26] MEDS: METOPROLOL SUCCINATE EXT REL 25 MG TABCR PO (09:02)
[2022-09-26 09:03] VITALS: PULSE 80
[2022-09-26] MEDS: PANTOPRAZOLE 40 MG TABLET PO (09:03)
[2022-09-26] MEDS: cycloSPORINE 0.4 ML OPHTH SOLUTION 1 DROP EACH EYE (09:03)
[2022-09-26] MEDS: ASPIRIN 81 MG ENTERIC TABLET PO (09:03)
[2022-09-26] MEDS: ATORVASTATIN 40 MG TABLET PO (09:03)
[2022-09-26] MEDS: MEXILETINE HCL 200 MG CAPSULE PO ×2 (09:03→12:16)
[2022-09-26 12:16] VITALS: PULSE 79
--- NOTE | 2022-09-26 13:05 | PM.DS ---
DS: Admitting Diagnosis Discharge Date 09/26/22 Admitting Diagnosis Flank pain DS: Discharge Diagnosis Discharge Diagnosis (1) Pyelonephritis: Code(s): N12 - Tubulo-interstitial nephritis, not specified as acute or chronic Status: Acute (2) CKD (chronic kidney disease): Qualifiers: Chronic kidney disease stage: stage 3 (moderate) Qualified Code(s): N18.3 - Chronic kidney disease, stage 3 (moderate) Code(s): N18.9 - Chronic kidney disease, unspecified Status: Chronic (3) CHF (congestive heart failure): Qualifiers: Heart failure type: unspecified Heart failure chronicity: unspecified Qualified Code(s): I50.9 - Heart failure, unspecified Code(s): I50.9 - Heart failure, unspecified Status: Chronic (4) RITA on CPAP: Code(s): G47.33 - Obstructive sleep apnea (adult) (pediatric); Z99.89 - Dependence on other enabling machines and devices Status: Acute (5) HTN (hypertension): Qualifiers: Hypertension type: essential hypertension Qualified Code(s): I10 - Essential (primary) hypertension Code(s): I10 - Essential (primary) hypertension Status: Chronic (6) Spinal stenosis: Qualifiers: Spinal region: lumbar Neurogenic claudication status: without neurogenic claudication Qualified Code(s): M48.061 - Spinal stenosis, lumbar region without neurogenic claudication Code(s): M48.00 - Spinal stenosis, site unspecified Status: Acute (7) GERD without esophagitis: Code(s): K21.9 - Gastro-esophageal reflux disease without esophagitis Status: Acute (8) S/P internal cardiac defibrillator procedure: Code(s): Z95.810 - Presence of automatic (implantable) cardiac defibrillator Status: Chronic (9) PAD (peripheral artery disease): Code(s): I73.9 - Peripheral vascular disease, unspecified Status: Acute DS: Summary Hospital Course Reason for hospitalization: 87yo male with CHF, CKD, RITA and HTN here for left falnk pain found to have pyelonephritis. Please see H&P for details. Hospital Course: Patient presents with flank pain and BP 164/102. CTA of the chest/abd/pelvis showed no aortic dissection or aneurysm. It did show mild left hydronephrosis with otilia ureteral stranding and stranding at the renal hilum and pelvis.? Also with bilateral perinephric stranding greater on the left.? Patchy cortical enhancement left kidney.? Urinalysis showed 3+ blood, 1+ protein, 1+ LE and greater than 100 red cells.? No white cells.? No fevers but white count was elevated on admission at 12.7K. He was started on Rocephin for possible pyelonephritis.? No urine culture was obtained but ordered after abx started.? No blood cultures obtained.? He has chronic CKD and creatinine here is 1.5 on admission.? Old values from 2018 but nothing more recent. Repeat Cr at 1.2. Patient has a history of CHF.? No old Echo reports listed. Clinically he remained euvolemic. He has RITA but has not been on CPAP for over 4 years. CTA also showing distal esophageal and gastric wall edema - possible esophagitis/gastritis. Patient was asymptomatic. 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 We continued his home medications. CTA showing significant PAD with severe stenosis of the proximal celiac artery, severe short segment stenosis of the left renal artery, 2/3 right renal artery stenosis, severe stenosis of the proximal FITZ. He denies symptoms of intestinal angina. BP was elevated on admission but normal once his pain was controlled and he was back on his home medications. We continued ASA. LFTs okay so we added Lipitor. His symptoms resolved. he overall did well and was able to be discharged home on 09/26/22. Status at Discharge Cognitive/behavioral status at discharge: Stable Time Spent with Patient Time attestation: Total time spent providing and/or coordinating discharge services: 35 minute
== END 2022-09-26 15:45 | disposition home or self-care (01) | DRG 690 ==
LOC: ANHED 22:47 → ANH3MEDSUR 09-25 08:17
PROVIDERS: Admitting Provider Internal Medicine; Emergency Provider Emergency Medicine; PCP Family Medicine; Visit Provider Internal Medicine
DX: N10 Acute pyelonephritis (principal); I13.0 Hypertensive heart and chronic kidney disease with heart failure and stage 1 through stage 4 chronic kidney disease, or unspecified chronic kidney disease; I47.20 Ventricular tachycardia, unspecified; N18.30 Chronic kidney disease, stage 3 unspecified; I50.9 Heart failure, unspecified; G47.33 Obstructive sleep apnea (adult) (pediatric); M48.061 Spinal stenosis, lumbar region without neurogenic claudication; K21.9 Gastro-esophageal reflux disease without esophagitis; E03.9 Hypothyroidism, unspecified; E78.2 Mixed hyperlipidemia; I73.9 Peripheral vascular disease, unspecified; M54.12 Radiculopathy, cervical region; Z95.810 Presence of automatic (implantable) cardiac defibrillator; Z79.82 Long term (current) use of aspirin; Z90.49 Acquired absence of other specified parts of digestive tract; Z87.891 Personal history of nicotine dependence
CPT/HCPCS: 36415; 71275; 72100; 74174; 80053; 80069; 81001; 83605; 83690; 83735; 85025; 85610; 85730; 87086; 97162; 99283; A9270; J0696; J7030; Q9967

== ENCOUNTER 2022-09-30 13:53 | Emergency (ER) | payer MEDICARE, BC, SELFPAY ==
[2022-09-30] VITALS (16 sets, daily range): BP systolic 166–199; BP diastolic 82–135; PULSE 80–91; RESP 10–28; TEMP 36.4–36.6; O2SAT 84–100
--- NOTE | ~2022-09-30 | XR_ITS ---
EXAMINATION: XR chest 2V Exam Date/Time: 09/30/2022 16:05 CDT HISTORY: HTN, LETHARGIC Comparison: 09/02/2018. RESULT: Lines, tubes, and devices: Right chest pacer/AICD. Cholecystectomy clips. Lungs and pleura: Clear. Cardiomediastinal silhouette: Stable. Other: No acute osseous or upper abdominal finding. IMPRESSION: No acute cardiopulmonary process. Reviewed, dictated and finalized at location K.
--- NOTE | 2022-09-30 14:43 | ED.WEAKNESS ---
HPI - Weakness General Chief complaint: Weakness Stated complaint: weakness Time Seen by Provider: 09/30/22 14:12 History of Present Illness HPI Narrative: Patient is an 87-year-old male presenting with generalized weakness. Patient states that he was recently admitted here and he went to the follow-up appointment today at his PCPs. States that his blood pressure was high and he felt off . He was advised to come to the ER for further evaluation. States that he has had an intermittent cough and shortness of breath for some time now. He denies any pain. No headaches, numbness or focal weakness, abdominal pain, vomiting, diarrhea, leg swelling. Related Data Home Medications Medication Instructions Recorded Confirmed aspirin 81 mg tablet,delayed 81 mg PO DAILY 06/13/19 09/30/22 release (Adult Aspirin Regimen) mexiletine 250 mg capsule 250 mg PO TID 06/13/19 09/30/22 multivitamin (Multiple Vitamins 1 tablet PO DAILY 07/20/19 09/30/22 tablet) metoprolol succinate 50 mg 25 mg PO DAILY 08/12/22 09/30/22 tablet,extended release 24 hr cyclosporine 0.05 % eye drops in a 1 drp EACH EYE Q12H 09/25/22 09/30/22 dropperette (Restasis) Allergies Allergy/AdvReac Type Severity Reaction Status Date / Time amiodarone Allergy Intermediate shakes Verified 09/30/22 13:32 Review of Systems Review of Systems: All systems reviewed & are unremarkable except as noted in HPI and below PMFSH Past Medical History Medical History BMI 22.0-22.9, adult Cardiac arrhythmia CHF (congestive heart failure) CKD (chronic kidney disease) GERD without esophagitis History of ventricular tachycardia HTN (hypertension) Hypothyroidism (acquired) Mixed hyperlipidemia Nephropathy RITA on CPAP Pacemaker Right inguinal hernia Surgical History Surgical History History of right inguinal hernia 11/16/19 Hx of appendectomy 2002 Hx of cholecystectomy 2009 S/P internal cardiac defibrillator procedure 2019 most recent one has had 4 Family History Family History Mother Family history of diabetes mellitus in first degree relative Family history of coronary artery disease Family history unknown, Onset Age: 87 Father Family history of cardiovascular disease, Onset Age: 76 Diabetes mellitus Grandparent Family history unknown Social History Social History Smoking status: Former smoker Tobacco type: cigarettes Second hand tobacco smoke exposure: No Alcohol intake: current Drinks per week: 2 Substance use: never Lack of Transportation: No Lack of Food: Never True Current Housing: I Have Housing Concerned About Future Housing: No Difficulty Paying Gas/Electric Bills: No Difficulty Paying for Meds: No Currently Unemployed: No Education: Trade/Vocational Certificate Difficulty w/ Childcare or Family Care: No Living arrangements: alone Occupation/Education: retired Gender identity (if verbalized by the patient): Male Spiritual care concerns: No Exam Narrative: GENERAL: Appears chronically ill, somewhat frail, pleasant and cooperative, no acute distress HEAD: Normocephalic, atraumatic. EYES: PERRLA and EOMI. ENT: Nares clear, no rhinorrhea or epistaxis. Mucous membranes moist. NECK: Supple. CHEST: Clear to auscultation. No respiratory distress. Intermittently coughing HEART: Regular rate and rhythm. No murmur heard. Normal peripheral pulses. ABDOMEN: Soft, nontender, nondistended EXTREMITIES: Normal range of motion. No edema. SKIN: Warm, dry, no rash. NEURO: No focal deficits. Alert and oriented x3. PSYCH: Normal mood and affect. Course Vital Signs Vital signs: Vital Signs Temperature 97.5 F L 09/30/22 13:55 Pulse Ra
--- NOTE | 2022-09-30 14:50 | ECG_ITS ---
Measurements Intervals [place] Rate: 83 P: 177 [place]: 357 QRS: 8 QRSD: 172 T: -20 QT: 383 QTc: 451 Interpretive Statements ELECTRONIC ATRIAL PACEMAKER RIGHT BUNDLE BRANCH BLOCK BASELINE ARTIFACT- I, V1-V2 ABNORMAL ECG COMPARED TO ECG 11/16/2019 06:59:29 NO SIGNIFICANT CHANGES Electronically Signed On 09-30-2022 15:52:50 CDT by Ben Sharma D.O.
[2022-09-30 16:08] LABS: Basophils Absolute Auto 0.1 K/mm3 (0.0-0.1); Basophils Percent Auto 1.4 % (0.2-1.2); Eosinophils Absolute Auto 0.2 K/mm3 (0-0.3); Eosinophils Percent Auto 3.4 % (0-4.4); Hemoglobin 14.2 g/dL (14.0-18.0); Immature Granulocyte Absolute 0.02 K/mm3 (0.00-0.031); Immature Granulocyte Percent A 0.3 % (0-0.5); Lymphocytes Absolute Auto 1.12 K/mm3 (0.9-3.2); Lymphocytes Percent Auto 17.4 % (18.3-44.2); Mean Corpuscular HGB Conc 31.6 g/dl (32-36); Mean Corpuscular Volume 94.9 fl (80-100); Mean Platelet Volume 9.4 fl (7.4-10.4); Monocytes Absolute Auto 0.7 K/mm3 (0.1-0.6); Monocytes Percent Auto 11.2 % (2.6-8.5); Neutrophils Absolute Auto 4.3 K/mm3 (1.3-6.7); Neutrophils Percent Auto 66.3 % (45.5-73.1); Platelet Count Result 228 k/mm3 (150-375); Red Blood Count 4.74 M/mm3 (4.6-6.20); Red Cell Distribution Width 13.2 % (11.5-14.5); White Blood Count 6.4 K/mm3 (4.5-10.0)
[2022-09-30 16:10] LABS: Alanine Aminotransferase 67 U/L (6-50); Albumin Level 4.5 g/dL (3.5-5.1); Alkaline Phosphatase 168 U/L (38-126); Anion Gap 8 mmol/L (8-16); Aspartate Amino Transferase 71 U/L (17-59); Bilirubin,Total 0.9 mg/dL (0.2-1.3); Blood Urea Nitrogen 32 mg/dL (9-20); Calcium 9.4 mg/dL (8.4-10.2); Carbon Dioxide 27 mmol/L (22-30); Chloride 106 mmol/L (98-107); Estimated CRCL calculation 35 ml/min; Estimated Glomerular Filt Rate 52; Glucose 87 mg/dL (65-110); Lipase 104 U/L (23-300); NT Pro B Type Natriuretic Pept 2360 pg/mL (19.9-100); Sodium 141 mmol/L (137-145); Troponin I < 0.012 ng/mL (0.000-0.034)
[2022-09-30 16:27] LABS: INR 1.1; Partial Thromboplastin Time 33.7 SECONDS (22.3-36.8)
[2022-09-30 16:33] LABS: Influenza A QL RT-PCR Negative (Negative); Influenza B QL RT-PCR Negative (Negative); RSV RNA, RT-PCR Negative (Negative); SARS-CoV-2 RNA PCR Negative (Negative)
[2022-09-30 17:09] LABS: Appearance Urine Clear (Clear); Bacteria Urine None Seen /hpf; Bilirubin Urine Negative (Negative); Blood Urine 1+ (Negative); Color Urine Yellow (Yellow); Glucose Urine UA Negative (Negative); Ketones Urine Negative (Negative); Leukocyte Esterase Ur Negative LEU/UL (Negative); Nitrate Urine Negative (Negative); Non Pathogenic Casts 0-2; Protein Urine Negative (Negative); RBC Urine 0-2 /hpf (0-2); Specific Grav Ur 1.016 (1.001-1.035); Squamous Epithelial Cell Urine None seen /hpf (Few); Urobilinogen Urine 0.2 mg/dL (<2.0); WBC Urine 0-5 /hpf
[2022-09-30 17:12] LABS: Add Urine Microscopic? YES
== END 2022-09-30 20:36 | disposition home or self-care (01) ==
PROVIDERS: Emergency Provider Emergency Medicine; PCP Family Medicine
DX: R53.1 Weakness (principal); I13.0 Hypertensive heart and chronic kidney disease with heart failure and stage 1 through stage 4 chronic kidney disease, or unspecified chronic kidney disease; Z20.822 Contact with and (suspected) exposure to COVID-19; I50.9 Heart failure, unspecified; N18.9 Chronic kidney disease, unspecified; E78.2 Mixed hyperlipidemia; E03.9 Hypothyroidism, unspecified; K21.9 Gastro-esophageal reflux disease without esophagitis; G47.33 Obstructive sleep apnea (adult) (pediatric); Z95.810 Presence of automatic (implantable) cardiac defibrillator; Z87.891 Personal history of nicotine dependence; Z79.82 Long term (current) use of aspirin; I45.10 Unspecified right bundle-branch block
CPT/HCPCS: 36415; 71046; 80053; 81001; 83690; 83880; 84484; 85025; 85610; 85730; 87637; 93005; 99284

== ENCOUNTER 2023-04-15 20:05 | Emergency (ER) | payer MEDICARE, BC, SELFPAY ==
[2023-04-15] VITALS (10 sets, daily range): BP systolic 118–145; BP diastolic 70–73; PULSE 68–75; RESP 14–22; TEMP 36.8; O2SAT 98–100
--- NOTE | 2023-04-15 20:11 | ECG_ITS ---
Measurements Intervals [place] Rate: 72 P: 29 DC: 168 QRS: -2 QRSD: 136 T: -12 QT: 392 QTc: 431 Interpretive Statements SINUS RHYTHM RIGHT BUNDLE BRANCH BLOCK BASELINE ARTIFACT- I, III, AVL ABNORMAL ECG COMPARED TO ECG 09/30/2022 15:10:23 SINUS RHYTHM NOW PRESENT Electronically Signed On 04-16-2023 7:00:37 CLIENT CARE MANAGER by Ben Sharma D.O.
--- NOTE | 2023-04-15 20:20 | PC.NURSE ---
Interrogation of defibrillator completed at 2018
[2023-04-15 20:31] LABS: Basophils Absolute Auto 0.1 K/mm3 (0.0-0.1); Basophils Percent Auto 1.1 % (0.2-1.2); Eosinophils Absolute Auto 0.3 K/mm3 (0-0.3); Eosinophils Percent Auto 4.8 % (0-4.4); Hematocrit 40.6 % (42.0-52.0); Hemoglobin 12.7 g/dL (14.0-18.0); Immature Granulocyte Absolute 0.02 K/mm3 (0.00-0.031); Immature Granulocyte Percent A 0.3 % (0-0.5); Lymphocytes Percent Auto 15.5 % (18.3-44.2); Mean Corpuscular HGB Conc 31.3 g/dl (32-36); Mean Corpuscular Hemoglobin 28.2 pg (26-34); Mean Corpuscular Volume 90.2 fl (80-100); Mean Platelet Volume 9.1 fl (7.4-10.4); Monocytes Percent Auto 14.3 % (2.6-8.5); Neutrophils Absolute Auto 4.5 K/mm3 (1.3-6.7); Platelet Count Result 305 k/mm3 (150-375); Red Cell Distribution Width 13.4 % (11.5-14.5); White Blood Count 7.1 K/mm3 (4.5-10.0)
[2023-04-15 20:42] LABS: Alanine Aminotransferase 20 U/L (6-50); Albumin Level 4.2 g/dL (3.5-5.1); Alkaline Phosphatase 137 U/L (38-126); Anion Gap 10 mmol/L (8-16); Aspartate Amino Transferase 39 U/L (17-59); Bilirubin,Total 0.7 mg/dL (0.2-1.3); Blood Urea Nitrogen 21 mg/dL (9-20); Calcium 9.2 mg/dL (8.4-10.2); Carbon Dioxide 27 mmol/L (22-30); Chloride 96 mmol/L (98-107); Estimated CRCL calculation 33 ml/min; Estimated Glomerular Filt Rate 52; Glucose 97 mg/dL (65-110); Lipase 463 U/L (23-300); Sodium 133 mmol/L (137-145)
[2023-04-15 20:43] LABS: INR 1.1; Prothrombin Time 15.1 Seconds (11.1-14.7)
[2023-04-15 21:31] LABS: Magnesium 1.8 mg/dL (1.6-2.3)
--- NOTE | 2023-04-15 22:51 | ED.GENADULT ---
HPI - General Adult General Chief complaint: Syncope Stated complaint: DIZZY, SHOCKED 2X BY AICD Time Seen by Provider: 04/15/23 20:45 History of Present Illness HPI narrative: This is an 88-year-old male with history of V-tach with AICD present ED after being shocked by his AICD. He was at dinner at 6:00 p.m. he started to feel lightheaded have palpitations. His AC AICD fired. He was then sent to the hospital for evaluation. This time the patient is resting comfortably in bed. He has no complaints. No fever chills chest pain difficulty breathing, lower extremity edema, abdominal pain, URI symptoms. Related Data Home Medications Medication Instructions Recorded Confirmed aspirin 81 mg tablet,delayed 81 mg PO DAILY 06/13/19 12/16/22 release (Adult Aspirin Regimen) mexiletine 250 mg capsule 250 mg PO TID 06/13/19 12/16/22 multivitamin (Multiple Vitamins 1 tablet PO DAILY 07/20/19 12/16/22 tablet) metoprolol succinate 50 mg 25 mg PO DAILY 08/12/22 12/16/22 tablet,extended release 24 hr cyclosporine 0.05 % eye drops in a 1 drp EACH EYE Q12H 09/25/22 12/16/22 dropperette (Restasis) Allergies Allergy/AdvReac Type Severity Reaction Status Date / Time amiodarone Allergy Intermediate shakes Verified 04/15/23 20:15 [facility] Past Medical History Medical History BMI 22.0-22.9, adult Cardiac arrhythmia CHF (congestive heart failure) CKD (chronic kidney disease) GERD without esophagitis History of ventricular tachycardia HTN (hypertension) Hypothyroidism (acquired) Mixed hyperlipidemia Nephropathy RITA on CPAP Pacemaker Right inguinal hernia Surgical History Surgical History History of right inguinal hernia 11/16/19 Hx of appendectomy 2002 Hx of cholecystectomy 2009 S/P internal cardiac defibrillator procedure 2019 most recent one has had 4 Family History Family History Mother Family history of diabetes mellitus in first degree relative Family history of coronary artery disease Family history unknown, Onset Age: 87 Father Family history of cardiovascular disease, Onset Age: 76 Diabetes mellitus Grandparent Family history unknown Social History Social History Smoking status: Former smoker Tobacco type: cigarettes Second hand tobacco smoke exposure: No Alcohol intake: current Drinks per week: 2 Substance use: never Lack of Transportation: No Lack of Food: Never True Current Housing: I Have Housing Concerned About Future Housing: No Difficulty Paying Gas/Electric Bills: No Difficulty Paying for Meds: No Currently Unemployed: No Education: Trade/Vocational Certificate Difficulty w/ Childcare or Family Care: No Living arrangements: alone Occupation/Education: retired Gender identity (if verbalized by the patient): Male Spiritual care concerns: No Exam Narrative: APPEARANCE: No apparent distress. Head: atraumatic. EYES: EOMI, NOSE: Atraumatic NECK: Trachea midline RESPIRATORY: No increased rate of breathing CARDIOVASCULAR: RRR, ABDOMINAL: Non-distended MUSCULOSKELETAl: No obvious deformities NEURO: Alert. Moving 4/4 extremities SKIN:: Warm, dry. Normal color PSYCHIATRIC: Normal affect Course Vital Signs Vital signs: Vital Signs Temperature 98.2 F 04/15/23 20:04 Pulse Rate 74 04/15/23 20:04 Respiratory Rate 14 04/15/23 20:04 Blood Pressure 132/70 04/15/23 20:04 Pulse Oximetry 98 04/15/23 20:04 Oxygen Delivery Room Air 04/15/23 20:04 Temperature 98.2 F 04/15/23 20:04 Pulse Rate 71 04/15/23 22:46 Respiratory Rate 16 04/15/23 22:46 Blood Pressure 128/71 04/15/23 22:46 Pulse Oximetry 98 04/15/23 22:46 Oxygen Delivery Room Air 04/15/23 20:04
[2023-04-16 00:24] LABS: Troponin I 0.049 ng/mL (0.000-0.034)
[2023-04-16 00:27] VITALS: BP 150/80; PULSE 76; RESP 15; O2SAT 100
== END 2023-04-16 00:57 ==
PROVIDERS: Emergency Provider Emergency Medicine; PCP Family Medicine
DX: R42 Dizziness and giddiness (principal); R00.2 Palpitations; Z95.810 Presence of automatic (implantable) cardiac defibrillator; I50.9 Heart failure, unspecified; I13.0 Hypertensive heart and chronic kidney disease with heart failure and stage 1 through stage 4 chronic kidney disease, or unspecified chronic kidney disease; N18.9 Chronic kidney disease, unspecified; E03.9 Hypothyroidism, unspecified; G47.30 Sleep apnea, unspecified; K21.9 Gastro-esophageal reflux disease without esophagitis
CPT/HCPCS: 36415; 80053; 83690; 83735; 84100; 84484; 85025; 85610; 85730; 93005; 99284

== ENCOUNTER 2023-10-22 08:13 | Emergency (ER) | payer MEDICARE, BC, SELFPAY ==
--- NOTE | ~2023-10-22 | XR_ITS ---
EXAMINATION: XR hand LT min 3V DATE: 10/22/2023 09:36 INDICATION: Left hand injury. TECHNIQUE: 3 views of left hand were obtained. COMPARISON: None. FINDINGS: Bone alignment is normal. No fracture. There is severe osteoarthritis of triscaphe joint an d first carpometacarpal joint. There is severe osteoarthritis of distal radioulnar joint. There is mo derate osteoarthritis of first and third metacarpophalangeal joints and mild osteoarthritis of some o f the metacarpophalangeal joints and interphalangeal joints. IMPRESSION: 1. Polyarticular osteoarthritis. Reviewed, dictated and finalized at location A.
--- NOTE | ~2023-10-22 | XR_ITS ---
EXAMINATION: XR wrist LT min 3V DATE: 10/22/2023 09:36 INDICATION: Left wrist injury and pain. TECHNIQUE: 3 views of left wrist were obtained. COMPARISON: None. FINDINGS: There is dorsal tilt of lunate, consistent with dorsal intercalated segmental instability ( DISI). There is severe osteoarthritis of lunate-capitate joint, triscaphe joint, and first carpometac arpal joint. There is severe osteoarthritis of distal radioulnar joint. Vascular calcifications are n oted. There are dystrophic calcifications in the wrist. IMPRESSION: 1. Polyarticular osteoarthritis. 2. DISI. Reviewed, dictated and finalized at location A.
[2023-10-22 08:19] VITALS: BP 173/85; PULSE 83; RESP 18; TEMP 36.4; O2SAT 95
--- NOTE | 2023-10-22 09:08 | ED.UPPEXIN ---
HPI - Extremity Injury (Upper) General Chief Complaint: Extremity Injury, Upper Stated Complaint: L hand pain after a fall. Time Seen by Provider: 10/22/23 08:44 Source: patient and other (facility notes/documentation reviewed) Mode of arrival: ambulatory Limitations: no limitations History of Present Illness HPI narrative: Left-hand dominant Patient presents with left hand pain after [place]. He states he was using his wheeled walker but the brake the left back we will failed this he was using it to go up a slight incline and it moved such that he landed on his left hand. He sustained a skin laceration and skin tear to the dorsal aspect of the hand which has been dressed and wrapped by staff. He took Tylenol this morning but has been having increasing pain. Also having paresthesias in digit number 4. Med list includes acetaminophen 325mg 2 tabs PRN and oxycodone 5mg PRN q 6 hours. Unknown last tetanus shot; not listed in alf documentation. Related Data Home Medications Medication Instructions Recorded Confirmed aspirin 81 mg tablet,delayed 81 mg PO DAILY 06/13/19 12/16/22 release (Adult Aspirin Regimen) mexiletine 250 mg capsule 250 mg PO TID 06/13/19 12/16/22 multivitamin (Multiple Vitamins 1 tablet PO DAILY 07/20/19 12/16/22 tablet) metoprolol succinate 50 mg 25 mg PO DAILY 08/12/22 12/16/22 tablet,extended release 24 hr cyclosporine 0.05 % eye drops in a 1 drp EACH EYE Q12H 09/25/22 12/16/22 dropperette (Restasis) Allergies Allergy/AdvReac Type Severity Reaction Status Date / Time amiodarone Allergy Intermediate shakes Verified 10/22/23 08:26 [facility] Past Medical History Medical History (Updated 10/23/23 @ 09:03 by Zina Polanco MD) BMI 23.0-23.9, adult Cardiac arrhythmia CHF (congestive heart failure) CKD (chronic kidney disease) GERD without esophagitis History of ventricular tachycardia HTN (hypertension) Hypotension, unspecified Hypothyroidism (acquired) Iron deficiency anemia Left hand dominant Mixed hyperlipidemia Nephropathy RITA on CPAP Pacemaker Repeated falls Right inguinal hernia Surgical History Surgical History History of right inguinal hernia 11/16/19 Hx of appendectomy 2002 Hx of cholecystectomy 2009 S/P internal cardiac defibrillator procedure 2019 most recent one has had 4 Family History Family History Mother Family history of diabetes mellitus in first degree relative Family history of coronary artery disease Family history unknown, Onset Age: 87 Father Family history of cardiovascular disease, Onset Age: 76 Diabetes mellitus Grandparent Family history unknown Social History Social History (Updated 10/22/23 @ 09:12 by Zina Polanco MD) Social History: Resides at [facility] Documentation signed 01/19/23 indicates full code/full treatment/CPR Smoking status: Former smoker Tobacco type: cigarettes Second hand tobacco smoke exposure: No Alcohol intake: current Drinks per week: 2 Substance use: never Lack of Transportation: No Lack of Food: Never True Current Housing: I Have Housing Concerned About Future Housing: No Difficulty Paying Gas/Electric Bills: No Difficulty Paying for Meds: No Currently Unemployed: No Education: Trade/Vocational Certificate Difficulty w/ Childcare or Family Care: No Living arrangements: alone Occupation/Education: retired Gender identity (if verbalized by the patient): Male Spiritual care concerns: No Exam Narrative: GENERAL: Well-appearing, well-nourished, and in no acute distress. HEAD: Normocephalic, atraumatic. EYES: Non injected, non icteric ENT: Nares clear, no rhinorrhea or epistaxis. NECK: Supple. CHEST: Speaking in full sentences. No respiratory distress. HEA
[2023-10-22] MEDS: HYDROcodone/acetaminophen (*CRX) 5-325 MG TABLET 1 TAB PO (09:29)
[2023-10-22 10:50] VITALS: BP 162/91; PULSE 77; RESP 18; O2SAT 95
[2023-10-22] MEDS: KETOROLAC 30 MG/ML VIAL (*BKC) 15 MG IM (10:53)
[2023-10-22] MEDS: TETANUS,DIPHTHERIA,AC PERTUSSIS ADULT (0.5 ML) BOOSTRIX IM (10:54)
--- NOTE | 2023-10-22 11:22 | PC.NURSE ---
Called facility for transportation back to facility. left a message and waiting for a call back
--- NOTE | 2023-10-22 11:51 | PC.NURSE ---
Deedee from [facility] states patient's ride will be here around [id number]
== END 2023-10-22 11:51 ==
PROVIDERS: Emergency Provider Student in an Organized Health Care Education/Training Program; PCP Family Medicine
DX: M15.9 Polyosteoarthritis, unspecified (principal); M25.332 Other instability, left wrist; S60.512A Abrasion of left hand, initial encounter; W18.30XA Fall on same level, unspecified, initial encounter; I50.9 Heart failure, unspecified; N18.9 Chronic kidney disease, unspecified; K21.9 Gastro-esophageal reflux disease without esophagitis; E03.9 Hypothyroidism, unspecified; E78.5 Hyperlipidemia, unspecified; Z95.0 Presence of cardiac pacemaker; I13.0 Hypertensive heart and chronic kidney disease with heart failure and stage 1 through stage 4 chronic kidney disease, or unspecified chronic kidney disease; Z87.891 Personal history of nicotine dependence; Z23 Encounter for immunization
CPT/HCPCS: 73110; 73130; 90471; 90715; 96372; 99283; A9270; J1885

== ENCOUNTER 2023-11-10 07:31 | Emergency (ER) | payer MEDICARE, BC, SELFPAY ==
--- NOTE | ~2023-11-10 | XR_ITS ---
XR chest 1V portable 11/10/2023 08:02 Indication: Chest pain and weakness Procedure: AP portable chest Comparison: Comparison to multiple prior studies sequentially, with oldest reviewed study dated 04/01. Findings: Cardiomegaly. Mild interstitial edema. Pacemaker leads are stable. No significant effusion. No pneumothorax. Impression: 1: Cardiomegaly with mild interstitial edema. Reviewed, dictated and finalized at location B. Impression: 1: Cardiomegaly with mild interstitial edema.
[2023-11-10 07:28] VITALS: BP 161/93; PULSE 78; RESP 18; TEMP 36.6; O2SAT 98
--- NOTE | 2023-11-10 07:35 | ECG_ITS ---
Test Date: 2023-11-10 07:47:54 Measurements Intervals [place] Rate: 63 P: 51 SC: 197 QRS: 14 QRSD: 173 T: -32 QT: 413 QTc: 425 Interpretive Statements SINUS RHYTHM WITH OCCASIONAL SUPRAVENTRICULAR PREMATURE COMPLEXES RIGHT BUNDLE BRANCH BLOCK [120+ ms QRS DURATION, UPRIGHT V1, 40+ ms S IN I/aVL/V4/V5/V6] No previous ECG available for comparison Electronically Signed On 11-10-2023 10:53:30 CDT by Ricci Ramey M.D.
--- NOTE | 2023-11-10 07:47 | ED.GENADULT ---
HPI - General Adult General Chief complaint: Extremity Problem,Nontraumatic Stated complaint: B/L LE edema History of Present Illness HPI narrative: Pt presents from local NH for lower extremity swelling and abnormal labs. Pt said they woke him up and said he needed to go to the hospital. Pt says he had some swelling in his legs but got lasix and it is better. Pt denies SOB or CP or fever or cough. Related Data Home Medications Medication Instructions Recorded Confirmed aspirin 81 mg tablet,delayed 81 mg PO DAILY 06/13/19 12/16/22 release (Adult Aspirin Regimen) mexiletine 250 mg capsule 250 mg PO TID 06/13/19 12/16/22 multivitamin (Multiple Vitamins 1 tablet PO DAILY 07/20/19 12/16/22 tablet) metoprolol succinate 50 mg 25 mg PO DAILY 08/12/22 12/16/22 tablet,extended release 24 hr cyclosporine 0.05 % eye drops in a 1 drp EACH EYE Q12H 09/25/22 12/16/22 dropperette (Restasis) Allergies Allergy/AdvReac Type Severity Reaction Status Date / Time amiodarone Allergy Intermediate shakes Verified 10/22/23 08:26 Review of Systems Review of Systems: All systems reviewed & are unremarkable except as noted in HPI and below PMFSH Past Medical History Medical History (Updated 11/10/23 @ 08:49 by Keena Walsh III, DO) BMI 23.0-23.9, adult Cardiac arrhythmia CHF (congestive heart failure) CKD (chronic kidney disease) GERD without esophagitis History of ventricular tachycardia HTN (hypertension) Hypotension, unspecified Hypothyroidism (acquired) Iron deficiency anemia Left hand dominant Mixed hyperlipidemia Nephropathy RITA on CPAP Pacemaker Repeated falls Right inguinal hernia Surgical History Surgical History History of right inguinal hernia 11/16/19 Hx of appendectomy 2001 Hx of cholecystectomy 2009 S/P internal cardiac defibrillator procedure 2019 most recent one has had 4 Family History Family History Mother Family history of diabetes mellitus in first degree relative Family history of coronary artery disease Family history unknown, Onset Age: 87 Father Family history of cardiovascular disease, Onset Age: 76 Diabetes mellitus Grandparent Family history unknown Social History Social History (Updated 10/22/23 @ 09:12 by Zina Polanco MD) Social History: Resides at [facility] ([place]) Documentation signed 01/19/23 indicates full code/full treatment/CPR Smoking status: Former smoker Tobacco type: cigarettes Second hand tobacco smoke exposure: No Alcohol intake: current Drinks per week: 2 Substance use: never Lack of Transportation: No Lack of Food: Never True Current Housing: I Have Housing Concerned About Future Housing: No Difficulty Paying Gas/Electric Bills: No Difficulty Paying for Meds: No Currently Unemployed: No Education: Trade/Vocational Certificate Difficulty w/ Childcare or Family Care: No Living arrangements: alone Occupation/Education: retired Gender identity (if verbalized by the patient): Male Spiritual care concerns: No Exam Const: General: healthy appearing and no acute distress Nutritional Appearance: well nourished Orientation/consciousness: patient oriented x3 Eyes: EOM: EOMs intact bilaterally Neck: Neck: normal visual inspection Chest: Chest palpation & inspection: normal inspection of the chest Resp: Effort & Inspection: normal respiratory effort Auscultation: clear to auscultation bilaterally Cardio: Rate: regular rate Rhythm: regular rhythm GI: GI Palp: Yes Soft to palpation and No Tenderness to palpation present (GI) Auscultation: normal bowel sounds Skin: General skin exam: normal color Wounds: no wounds Neuro: General: patient oriented x3, moves all extremities, no meningeal signs and no focal motor deficits Speech: normal spee
[2023-11-10 08:02] VITALS: BP 169/85; PULSE 65; RESP 21; O2SAT 99
[2023-11-10 08:06] LABS: Basophils Absolute Auto 0.1 K/mm3 (0.0-0.1); Basophils Percent Auto 1.6 % (0.2-1.2); Eosinophils Absolute Auto 0.3 K/mm3 (0-0.3); Eosinophils Percent Auto 5.2 % (0-4.4); Immature Granulocyte Absolute 0.02 K/mm3 (0.00-0.031); Immature Granulocyte Percent A 0.4 % (0-0.5); Lymphocytes Absolute Auto 1.26 K/mm3 (0.9-3.2); Lymphocytes Percent Auto 22.5 % (18.3-44.2); Mean Corpuscular HGB Conc 31.7 g/dl (32-36); Mean Corpuscular Hemoglobin 29.6 pg (26-34); Mean Corpuscular Volume 93.4 fl (80-100); Mean Platelet Volume 10.1 fl (7.4-10.4); Monocytes Absolute Auto 0.7 K/mm3 (0.1-0.6); Monocytes Percent Auto 13.2 % (2.6-8.5); Neutrophils Absolute Auto 3.2 K/mm3 (1.3-6.7); Neutrophils Percent Auto 57.1 % (45.5-73.1); Platelet Count Result 167 k/mm3 (150-375); Red Blood Count 4.39 M/mm3 (4.6-6.20); Red Cell Distribution Width 14.2 % (11.5-14.5); White Blood Count 5.6 K/mm3 (4.5-10.0)
[2023-11-10 08:17] VITALS: BP 162/74; PULSE 65; RESP 15; O2SAT 96
[2023-11-10 08:27] LABS: Alanine Aminotransferase 12 U/L (6-50); Albumin Level 4.1 g/dL (3.5-5.1); Alkaline Phosphatase 129 U/L (38-126); Anion Gap 9 mmol/L (4-12); Aspartate Amino Transferase 29 U/L (17-59); Bilirubin,Total 0.9 mg/dL (0.2-1.3); Blood Urea Nitrogen 32 mg/dL (9-20); Calcium 9.2 mg/dL (8.4-10.2); Carbon Dioxide 21 mmol/L (22-30); Chloride 111 mmol/L (98-107); Estimated CRCL calculation 28 ml/min; Estimated Glomerular Filt Rate 41; Glucose 86 mg/dL (65-110); Potassium 4.3 mmol/L (3.4-5.0); Sodium 141 mmol/L (137-145)
[2023-11-10 08:36] LABS: INR 1.2; Partial Thromboplastin Time 39.5 Seconds (22.3-36.8)
[2023-11-10 08:38] LABS: NT Pro B Type Natriuretic Pept 2610 pg/mL (19.9-100); Troponin I < 0.012 ng/mL (0.000-0.034)
[2023-11-10] MEDS: FUROSEMIDE INJ 40 MG/4 ML VIAL IV PUSH (08:56)
[2023-11-10 09:02] VITALS: BP 97/64; PULSE 60; RESP 15; O2SAT 98
--- NOTE | 2023-11-10 09:37 | PC.NURSE ---
called [place] to give report and to see if they have transportation available. They state they will check to see if they have a bus available and will call back
== END 2023-11-10 10:19 ==
PROVIDERS: Emergency Provider Emergency Medicine; PCP Family Medicine
DX: R60.0 Localized edema (principal); Z79.82 Long term (current) use of aspirin; I50.9 Heart failure, unspecified; N18.9 Chronic kidney disease, unspecified; K21.9 Gastro-esophageal reflux disease without esophagitis; I13.0 Hypertensive heart and chronic kidney disease with heart failure and stage 1 through stage 4 chronic kidney disease, or unspecified chronic kidney disease; E03.9 Hypothyroidism, unspecified; E78.5 Hyperlipidemia, unspecified; G47.33 Obstructive sleep apnea (adult) (pediatric); Z99.89 Dependence on other enabling machines and devices; Z95.0 Presence of cardiac pacemaker; Z87.891 Personal history of nicotine dependence
CPT/HCPCS: 36415; 71045; 80053; 83880; 84484; 85025; 85610; 85730; 93005; 96374; 99284; J1940

== ENCOUNTER 2023-12-01 12:27 | Observation (INO) | payer MEDICARE, BC, SELFPAY ==
[2023-12-01] VITALS (29 sets, daily range): BP systolic 68–181; BP diastolic 46–104; PULSE 40–139; RESP 12–23; TEMP 36.4–37.1; O2SAT 95–100; BMI 22.9
--- NOTE | ~2023-12-01 | XR_ITS ---
EXAMINATION: XR chest 1V portable DATE: 12/01/2023 14:03 INDICATION: Chest pressure. TECHNIQUE: A single frontal view of the chest was obtained. COMPARISON: Chest single view 11/10/2023, chest CT 09/24/2022 FINDINGS: There is no pneumonia, pleural effusion, or pneumothorax. Cardiomegaly is noted. There is a left chest wall pacer with leads in the right atrium and right ventricle. IMPRESSION: 1. Cardiomegaly. Reviewed, dictated and finalized at location A. IMPRESSION: 1. Cardiomegaly.
--- NOTE | 2023-12-01 12:52 | ED.CHESTPAIN ---
HPI - Chest Pain General Chief Complaint: Chest Pain Stated Complaint: chest pressure Time Seen by Provider: 12/01/23 12:27 Source: patient and EMS Mode of arrival: EMS Limitations: no limitations History of Present Illness HPI narrative: 88 years old white male [facility] because of intermittent racing heartbeat and fluttering feeling. Sometime associated with shortness of breath, started this morning. He denies any chest pain. Patient is allergic to amiodarone. Related Data Home Medications Medication Instructions Recorded Confirmed aspirin 81 mg tablet,delayed 81 mg PO DAILY 06/13/19 12/16/22 release (Adult Aspirin Regimen) mexiletine 250 mg capsule 250 mg PO TID 06/13/19 12/16/22 multivitamin (Multiple Vitamins 1 tablet PO DAILY 07/20/19 12/16/22 tablet) metoprolol succinate 50 mg 25 mg PO DAILY 08/12/22 12/16/22 tablet,extended release 24 hr cyclosporine 0.05 % eye drops in a 1 drp EACH EYE Q12H 09/25/22 12/16/22 dropperette (Restasis) Allergies Allergy/AdvReac Type Severity Reaction Status Date / Time amiodarone Allergy Intermediate shakes Verified 10/22/23 08:26 Review of Systems Review of Systems: All systems reviewed & are unremarkable except as noted in HPI and below PMFSH Past Medical History Medical History BMI 23.0-23.9, adult Cardiac arrhythmia CHF (congestive heart failure) CKD (chronic kidney disease) GERD without esophagitis History of ventricular tachycardia HTN (hypertension) Hypotension, unspecified Hypothyroidism (acquired) Iron deficiency anemia Left hand dominant Mixed hyperlipidemia Nephropathy RITA on CPAP Pacemaker Repeated falls Right inguinal hernia Surgical History Surgical History History of right inguinal hernia 11/16/19 Hx of appendectomy 2001 Hx of cholecystectomy 2009 S/P internal cardiac defibrillator procedure 2019 most recent one has had 4 Family History Family History Mother Family history of diabetes mellitus in first degree relative Family history of coronary artery disease Family history unknown, Onset Age: 87 Father Family history of cardiovascular disease, Onset Age: 76 Diabetes mellitus Grandparent Family history unknown Social History Social History Social History: Resides at [facility] ([place]) Documentation signed 01/19/23 indicates full code/full treatment/CPR Smoking status: Former smoker Tobacco type: cigarettes Second hand tobacco smoke exposure: No Alcohol intake: current Drinks per week: 2 Substance use: never Lack of Transportation: No Lack of Food: Never True Current Housing: I Have Housing Concerned About Future Housing: No Difficulty Paying Gas/Electric Bills: No Difficulty Paying for Meds: No Currently Unemployed: No Education: Trade/Vocational Certificate Difficulty w/ Childcare or Family Care: No Living arrangements: alone Occupation/Education: retired Gender identity (if verbalized by the patient): Male Spiritual care concerns: No Exam Narrative: General appearance: Well-developed, well-nourished Skin: Normal color Head: Normocephalic, nontraumatic Eyes: Clear conjunctiva ENT: Oropharynx normal, ears normal, nose normal Neck: Supple, nontender Chest and respiratory: Airway patent, no respiratory distress, no accessory muscle use Heart: Irregular heartbeat Abdomen: Soft, nontender, no organomegaly, quiet bowel sounds Vascular: Normal peripheral pulses, normal capillary refill. Musculoskeletal: Normal range of motion, nontender back Neurologic: Alert and oriented ?3, [employer] is normal as tested, no gross motor deficit
--- NOTE | 2023-12-01 13:03 | ECG_ITS ---
Test Date: 2023-12-01 12:30:44 Measurements Intervals [place] Rate: 97 P: 17 [place]: 258 QRS: -9 QRSD: 138 T: -11 QT: 377 QTc: 481 Interpretive Statements SINUS RHYTHM WITH FIRST DEGREE AV BLOCK SUPRAVENTRICULAR BIGEMINY AND ATRIAL PREMATURE COMPLEX RIGHT BUNDLE BRANCH BLOCK BASELINE ARTIFACT- I, III, AVR, AVL, AVF, V4-V6 ABNORMAL ECG Compared to ECG 11/10/2023 07:47:54 SUPRAVENTRICULAR BIGEMINY NOW PRESENT First degree AV block now present Electronically Signed On 12-01-2023 16:43:57 CDT by Ben Sharma D.O.
[2023-12-01 13:23] LABS: Basophils Absolute Auto 0.1 K/mm3 (0.0-0.1); Basophils Percent Auto 1.2 % (0.2-1.2); Eosinophils Absolute Auto 0.3 K/mm3 (0-0.3); Eosinophils Percent Auto 5.1 % (0-4.4); Hematocrit 41.7 % (42.0-52.0); Hemoglobin 13.3 g/dL (14.0-18.0); Immature Granulocyte Absolute 0.02 K/mm3 (0.00-0.031); Immature Granulocyte Percent A 0.3 % (0-0.5); Lymphocytes Absolute Auto 1.44 K/mm3 (0.9-3.2); Lymphocytes Percent Auto 23.7 % (18.3-44.2); Mean Corpuscular HGB Conc 31.9 g/dl (32-36); Mean Corpuscular Hemoglobin 29.7 pg (26-34); Mean Corpuscular Volume 93.1 fl (80-100); Monocytes Absolute Auto 0.7 K/mm3 (0.1-0.6); Neutrophils Absolute Auto 3.6 K/mm3 (1.3-6.7); Neutrophils Percent Auto 58.7 % (45.5-73.1); Platelet Count Result 206 k/mm3 (150-375); Red Blood Count 4.48 M/mm3 (4.6-6.20); Red Cell Distribution Width 13.5 % (11.5-14.5); White Blood Count 6.1 K/mm3 (4.5-10.0)
[2023-12-01 13:32] LABS: INR 1.1; Prothrombin Time 15.2 Seconds (11.1-14.7)
[2023-12-01 13:33] LABS: Partial Thromboplastin Time 33.6 Seconds (22.3-36.8)
[2023-12-01 13:36] LABS: Alanine Aminotransferase 13 U/L (6-50); Albumin Level 4.1 g/dL (3.5-5.1); Alkaline Phosphatase 143 U/L (38-126); Anion Gap 7 mmol/L (4-12); Aspartate Amino Transferase 29 U/L (17-59); Bilirubin,Total 0.9 mg/dL (0.2-1.3); Blood Urea Nitrogen 25 mg/dL (9-20); Carbon Dioxide 25 mmol/L (22-30); Chloride 108 mmol/L (98-107); Estimated CRCL calculation 35 ml/min; Estimated Glomerular Filt Rate 52; Glucose 99 mg/dL (65-110); Lipase 85 U/L (23-300); Potassium 4.1 mmol/L (3.4-5.0); Sodium 140 mmol/L (137-145)
[2023-12-01 13:46] LABS: Troponin I < 0.012 ng/mL (0.000-0.034)
--- NOTE | 2023-12-01 13:50 | PC.NURSE ---
Pt received 18.75 mLs total, infused over 3 minutes at a rate of 375mL/hr, of Lidocaine for Lidocaine bolus. This RN spoke with Sharif from pharmacy to confirm order dosage and rate.
--- NOTE | 2023-12-01 15:08 | PM.IMHP ---
H&P: HPI History of Present Illness Date/Time: 12/01/23 16:15 Chief Complaint: Chest pressure and palpitations. 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 The patient provides the following history. He felt fine when he got up this morning and in fact played [employer] with his friends. As the morning progressed however he started to feel unwell with intermittent periods of lightheadedness, chest pressure, palpitations, and shortness of breath. He denies syncope, pleuritic pain, nausea, vomiting, and sweats. Defibrillator has not fired today but he gets anxious thinking that it might happen. In the ED: He was afebrile on arrival with stable blood pressures and an SpO2 in the mid upper 90s on room air. He was noted to have brief runs of nonsustained ventricular tachycardia for which he was started on a lidocaine drip at 2 milligrams/minute (patient reports an amiodarone allergy) without recurrence. Labs were significant for WBC count of 6.1, hemoglobin 13.3, BUN 25, creatinine 1.30, troponin less than 0.012. Chest x-ray shows cardiomegaly. He was admitted to the ICU in this setting for close monitoring and Cardiology consultation. After arriving to the ICU, the patient continued to have 12 to 14 be runs of nonsustained ventricular tachycardia. I spoke with Dr. Mcelroy, at [facility] and he has accepted the patient in transfer however they do not have a bed at this time. He graciously gave some suggestions: Continue lidocaine drip but monitor closely for toxicity and check lidocaine level. Continue metoprolol but change to metoprolol tartrate 12.5 mg q.6 hours as tolerated. Hold mexiletine. Give 2 g magnesium sulfate and monitor electrolytes closely. Review of Systems Review of Systems: 12 systems were reviewed and are negative except for as per HPI. [facility] Past Medical History Medical History (Updated 12/01/23 @ 15:39 by Samantha Hope PA-C) Anemia, chronic disease Benign essential hypertension Cardiomyopathy Clinical diagnosis of ARVC-D with equivocal findings for such on cardiac MRI though genetic panel was negative. TTE in November 2018 showed dilated and hypokinetic right ventricle with fairly normal left ventricle. Chronic diastolic heart failure Chronic kidney disease Gastroesophageal reflux disease History of placement of internal cardiac defibrillator Hypothyroidism Mixed hyperlipidemia Obstructive sleep apnea on CPAP Ventricular tachycardia Resuscitated ventricular tachycardia in 2003 after running status post ICD insertion with previous VT of lesions. Surgical History Surgical History (Updated 12/01/23 @ 15:22 by Samantha Hope PA-C) History of appendectomy (2001) History of cardiac radiofrequency ablation For ventricular tachycardia per Dr. Vasquez at [facility]. History of cholecystectomy (2008) History of right inguinal hernia (11/16/19) Family History Family History Mother Family history of diabetes mellitus in first degree relative Family history of coronary artery disease Family history unknown, Onset Age: 87 Father Family history of cardiovascular disease, Onset Age: 76 Diabetes mellitus Grandparent Family history unknown Social History Social History (Updated 12/01/23 @ 15:37 by Samantha Hope PA-C) Social History: Surrogate medical decision maker: ryan Ta
--- NOTE | 2023-12-01 16:25 | PC.NURSE ---
This patient, Joel Carmona, was admitted to Intensive Care Unit-6. Patient/family oriented to hospital policies and general routines including ID bracelet, bed and alarms, visiting hours, pain management, procedures, bathroom and other care routines, personal items, smoking policy, room service/diet, and visiting hours. Information on how to activate the Rapid Response Team has been discussed. Patient/Family are encouraged to report perceived risks to care and to ask questions if they do not understand what they are told or what they should do.
--- NOTE | 2023-12-01 18:00 | PC.NURSE ---
1800- Update provided to daughter Uzma Mancilla, daughter informed this RN that he follows Dr. Braeden Vasquez at [facility] for electrical of the heart She stated that Dr. Vasquez recently decreased a medication that they were informed may cause dysrhythmias, She is unsure if it was metoprolol or another medication. 182- Patient appears to have gone into AFIB on the monitor AEB absent P waves, stat order for EKG changes obtained as patients previous EKG did not show AFIB. See orders and reports for further details 182- EKG provided to Samantha GREER who is currently speaking with [facility] for potential transfer.
[2023-12-01 18:08] LABS: MRSA (PCR) NOT DETECTED (NOT DETECTE)
--- NOTE | 2023-12-01 18:26 | ECG_ITS ---
Test Date: 2023-12-01 18:29:29 Measurements Intervals [place] Rate: 116 P: 0 OK: 0 QRS: 8 QRSD: 159 T: 14 QT: 330 QTc: 460 Interpretive Statements SINUS RHYTHM WITH FIRST DEGREE AV BLOCK ATRIAL TRIPLET AND FREQUENT ATRIAL COUPLETS RIGHT BUNDLE BRANCH BLOCK ABNORMAL ECG Compared to ECG 12/01/2023 12:30:44 ATRIAL COUPLETS AND TRIPLET NOW PRESENT Electronically Signed On 12-02-2023 06:18:49 CDT by Ben Sharma D.O.
[2023-12-01 18:38] LABS: Magnesium 1.9 mg/dL (1.6-2.3)
--- NOTE | 2023-12-01 19:10 | PC.NURSE ---
Spoke with Mague from [facility] transfer center, updated vitals and labs provided. Per Mague likely no bed tonight but will update us accordingly
[2023-12-01] MEDS: MAGNESIUM SULF 2 GM/WATER 50ML 2 GM/50 ML BAG IVPB (19:55)
[2023-12-01] MEDS: METOPROLOL TARTRATE 12.5 MG TABLET PO (20:05)
[2023-12-01 20:18] LABS: Troponin I 0.021 ng/mL (0.000-0.034)
[2023-12-01] MEDS: SODIUM CHLORIDE 0.9% IV 500 ML IV CONT (22:53)
--- NOTE | 2023-12-01 23:26 | PC.NURSE ---
21:30- ZOEY Singh updated on heart rate, Lidocaine gtt rate decreased. 22:20- Heart rate in the 40s ZOEY Singh updated, Lidocaine stopped. 2229- BP- 77/46, Dr. Gray updated on patient condition, orders received. 2299- Dr. Rodrigo Aranda updated on patient condition, no new orders given. 2310- Rachael, [facility] scallop shucker, updated on patient status. No bed available at this time.
[2023-12-02] VITALS (33 sets, daily range): BP systolic 81–164; BP diastolic 52–113; PULSE 40–120; RESP 14–20; TEMP 36.4–36.9; O2SAT 93–97
[2023-12-02 02:16] LABS: Hemoglobin 13.9 g/dL (14.0-18.0); Mean Corpuscular HGB Conc 33.1 g/dl (32-36); Mean Corpuscular Hemoglobin 30.2 pg (26-34); Mean Corpuscular Volume 91.3 fl (80-100); Platelet Count Result 212 k/mm3 (150-375); Red Cell Distribution Width 13.7 % (11.5-14.5); White Blood Count 6.2 K/mm3 (4.5-10.0)
[2023-12-02 02:28] LABS: Anion Gap 10 mmol/L (4-12); Blood Urea Nitrogen 25 mg/dL (9-20); Calcium 9.1 mg/dL (8.4-10.2); Carbon Dioxide 22 mmol/L (22-30); Chloride 105 mmol/L (98-107); Estimated CRCL calculation 27 ml/min; Estimated Glomerular Filt Rate 38; Glucose 195 mg/dL (65-110); Magnesium 2.4 mg/dL (1.6-2.3); Potassium 4.6 mmol/L (3.4-5.0); Sodium 137 mmol/L (137-145)
--- NOTE | 2023-12-02 08:06 | WPDCNINT ---
Assessment and Plan Assessment and plan (1) Nonsustained ventricular tachycardia: Code(s): I47.29 - Other ventricular tachycardia Status: Acute Assessment and Plan: Patient presented with chest pressure, palpitations, shortness of breath, was found to have intermittent nonsustained ventricular tachycardia in the ER, patient is allergic to amiodarone, was started on lidocaine infusion with improvement and no recurrence. Upon arrival to the ICU patient did have an episode of nonsustained V-tach which was self-limiting. -patient's transportation engineering technician is at [facility], patient has been accepted to [facility] and will be transferred when a bed is available. -patient had episode of hypotension and bradycardia, lidocaine infusion was discontinued -currently metoprolol on hold (2) Hypotension: Code(s): I95.9 - Hypotension, unspecified Status: Acute Assessment and Plan: Overnight patient was hypotensive, received IV fluid bolus and started on phenylephrine. -currently on minimal phenylephrine infusion, will likely be able to discontinue -blood pressure is much improved after IV fluids and phenylephrine and discontinuation of lidocaine infusion (3) Cardiomyopathy: Code(s): I42.9 - Cardiomyopathy, unspecified Status: Acute Assessment and Plan: History of cardiomyopathy, patient follows up at [facility] (4) HTN (hypertension): Code(s): I10 - Essential (primary) hypertension Status: Chronic Assessment and Plan: History of essential hypertension, was hypotensive requiring phenylephrine. Will hold all antihypertensives at this time (5) Chronic diastolic heart failure: Code(s): I50.32 - Chronic diastolic (congestive) heart failure Status: Acute Assessment and Plan: History of chronic diastolic dysfunction, we do not have a echocardiogram on file as patient follows up his transportation engineering technician at [facility] (6) CKD (chronic kidney disease): Qualifiers: Chronic kidney disease stage: stage 3 (moderate) Qualified Code(s): N18.3 - Chronic kidney disease, stage 3 (moderate) Code(s): N18.9 - Chronic kidney disease, unspecified Status: Chronic Assessment and Plan: history of chronic kidney disease, baseline creatinine at 1.2-1.3, -adequate urine output, continue to monitor urine output, renal function, electrolytes (7) Hypothyroidism: Code(s): E03.9 - Hypothyroidism, unspecified Status: Acute Assessment and Plan: TSH was within normal limits -will restart levothyroxine which is his home medication Plan DVT prophylaxis: Lovenox Stress ulcer prophylaxis: PPI Nutrition: Heart healthy diet Code Status: Full code Critical Care Time Spent: 46 minutes Patient has a bed available at [facility] and be transferred today Due to a high probability of clinically significant, life threatening deterioration, the patient required my highest level of preparedness to intervene emergently and I personally spent this critical care time directly and personally managing the patient. This critical care time included obtaining a history; examining the patient; pulse oximetry; ordering and review of studies; arranging urgent treatment with development of a management plan; evaluation of patient's response to treatment; frequent reassessment; and discussions with other providers. It was exclusive of separately billable procedures and treating other patients and teaching time. Please see Assessment and Plan section and the rest of the note for further information on patient assessment and treatment This dictation may have been done utilizing a voice recognition system. Attempts have been made to correct errors. However, there may be uncorrected grammatical, spelling, and recognitions errors present. Liability Claims Adjuster Consult Note Consult date: 12/02/23 Reason for consult: Chest pressure, palpitations, ventri
--- NOTE | 2023-12-02 08:12 | PC.NURSE ---
Report called to MANSI Valentino at [facility]. Patient will be going to room [id number] in the critical care unit under the care of accepting physician Dr. Mcelroy. Awaiting transport
--- NOTE | 2023-12-02 08:38 | PM.TDS ---
Transfer Discharge Sum: Prov Provider Date of admission: 12/01/23 14:52 Primary care physician: Michael Silva MD Admitting clinician: David Farnsworth MD Consults: 12/01/23 14:54 Consult to Physician Routine Comment: Consulting Provider: Ricci Ramey Reason for consultation: Runs of V-tach Has provider been notified: Yes DS: Admitting Diagnosis Discharge Date 12/02/23 Admitting Diagnosis Chest pressure DS: Discharge Diagnosis Discharge Diagnosis (1) Nonsustained ventricular tachycardia: Code(s): I47.29 - Other ventricular tachycardia Status: Acute (2) Hypotension: Code(s): I95.9 - Hypotension, unspecified Status: Acute (3) Cardiomyopathy: Code(s): I42.9 - Cardiomyopathy, unspecified Status: Acute (4) HTN (hypertension): Code(s): I10 - Essential (primary) hypertension Status: Chronic (5) Chronic diastolic heart failure: Code(s): I50.32 - Chronic diastolic (congestive) heart failure Status: Acute (6) CKD (chronic kidney disease): Qualifiers: Chronic kidney disease stage: stage 3 (moderate) Qualified Code(s): N18.3 - Chronic kidney disease, stage 3 (moderate) Code(s): N18.9 - Chronic kidney disease, unspecified Status: Chronic (7) Hypothyroidism: Code(s): E03.9 - Hypothyroidism, unspecified Status: Acute Transfer Discharge Sum: Med Medications Active and Home Medications: Home Medications mexiletine 250 mg capsule 250 mg PO TID 06/13/19 [History Confirmed 12/01/23] metoprolol succinate 50 mg tablet,extended release 24 hr 25 mg PO DAILY 08/12/22 [History Confirmed 12/01/23] acetaminophen 325 mg tablet 650 mg PO Q4H PRN Pain, Mild 12/01/23 [History Confirmed 12/01/23] cetirizine 10 mg tablet 10 mg PO DAILY PRN Allergic Symptoms 12/01/23 [History Confirmed 12/01/23] docusate sodium 100 mg capsule 100 mg PO DAILY 12/01/23 [History Confirmed 12/01/23] furosemide 20 mg tablet 20 mg PO DAILY 12/01/23 [History Confirmed 12/01/23] ibuprofen 600 mg tablet 600 mg PO Q4H PRN pain 12/01/23 [History Confirmed 12/01/23] levothyroxine 125 mcg tablet 62.5 mcg PO DAILY 12/01/23 [History Confirmed 12/01/23] omeprazole 20 mg tablet,delayed release 20 mg PO DAILY 12/01/23 [History Confirmed 12/01/23] ondansetron HCl 4 mg tablet 4 mg PO Q8H 12/01/23 [History Confirmed 12/01/23] oxycodone 5 mg tablet 5 mg PO Q6H PRN Pain 12/01/23 [History Confirmed 12/01/23] psyllium husk (with sugar) 3.4 gram oral powder packet (Metamucil (with sugar)) 1 ea PO DAILY PRN Constipation 12/01/23 [History Confirmed 12/01/23] tamsulosin 0.4 mg capsule 0.4 mg PO DAILY 12/01/23 [History Confirmed 12/01/23] Active Medications Acetaminophen (Acetaminophen 325 Mg Tablet) 650 mg PO Q4H PRN PRN Reason: Mild Pain (1-3) or Fever Enoxaparin Sodium (Enoxaparin 40 Mg/0.4 Ml Syringe) 40 mg SUB-Q DAILY [facility] Lidocaine HCl/Dextrose (Lidocaine Hcl In D5w 4mg/Ml) 2 gm in 500 mls @ 0 mls/hr IV CONT .Q0M [facility] Last Infusion: 12/02/23 06:00 Dose: 0 mg/min, 0 mls/hr Phenylephrine HCl 50 mg/ (Dextrose) 250 ml in 255 mls @ 3.06 mls/hr IV CONT .Q72H AP; Protocol Last Titration: 12/02/23 07:45 Dose: 10 mcg/min, 3.06 mls/hr Levothyroxine Sodium (Levothyroxine Sodium 12.5 Mcg Tablet) 12.5 mcg PO DAILY@0630 [facility] Levothyroxine Sodium (Levothyroxine Sodium 50 Mcg Tablet) 50 mcg PO DAILY@0630 [facility] Metoprolol Tartrate (Metoprolol Tartrate 12.5 Mg Tablet) 12.5 mg PO Q6HR [facility] Last Admin: 12/02/23 08:22 Dose: Not Given Pantoprazole Sodium (Pantoprazole 40 Mg Tablet) 40 mg PO QAM [facility] Transfer Discharge Sum: Hosp Hospital Course Hospital course: Joel Carmona is a 88 year old male with history of resuscitated ventricular tachycardia in 2003 after running status post ICD implantation and previous V-tach ablations, nonischemic cardiomyopathy with 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
[2023-12-02] MEDS: PANTOPRAZOLE 40 MG TABLET PO (08:43)
[2023-12-02] MEDS: ENOXAPARIN 40 MG/0.4 ML SYRINGE SUB-Q (08:43)
--- NOTE | 2023-12-02 08:50 | PC.NURSE ---
Daughter Uzma returned call, update provided on patient and the room number he will be going to and the receiving RN.
--- NOTE | 2023-12-02 10:06 | PC.NURSE ---
Darya here for transport to [place], face to face report given to EMS on patient history and current condition and transfer plan. Appropriate documentation packed handed off to EMS. All patient belongings collected and sent with patient. Daughter Uzma and receiving RN Chelsy notified of patient leaving unit @ [id number]
[2023-12-05 11:23] LABS: Lidocaine 3.2 mg/L (1.5-5.0)
== END 2023-12-02 10:12 | disposition short-term general hospital (02) ==
LOC: ANHED 14:41 → ANHICU 15:44
PROVIDERS: Internal Medicine; Physician Assistant; Admitting Provider Internal Medicine; Emergency Provider Emergency Medicine; PCP Family Medicine; Visit Provider Internal Medicine
DX: I47.29 Other ventricular tachycardia (principal); I13.0 Hypertensive heart and chronic kidney disease with heart failure and stage 1 through stage 4 chronic kidney disease, or unspecified chronic kidney disease; I50.32 Chronic diastolic (congestive) heart failure; N18.30 Chronic kidney disease, stage 3 unspecified; E03.9 Hypothyroidism, unspecified; I25.5 Ischemic cardiomyopathy; D50.9 Iron deficiency anemia, unspecified; E78.2 Mixed hyperlipidemia; G47.33 Obstructive sleep apnea (adult) (pediatric); D63.1 Anemia in chronic kidney disease; E11.21 Type 2 diabetes mellitus with diabetic nephropathy; K21.9 Gastro-esophageal reflux disease without esophagitis; Z79.82 Long term (current) use of aspirin; Z95.810 Presence of automatic (implantable) cardiac defibrillator; Z87.891 Personal history of nicotine dependence
CPT/HCPCS: 36415; 71045; 80048; 80053; 80176; 83690; 83735; 84443; 84484; 85025; 85027; 85610; 85730; 87641; 93005; 96365; 96366; 96367; 99285; A9270; G0378; J1650; J2001; J2371; J3475; J7030; J7040; J7060

== ENCOUNTER 2024-02-06 04:02 | Emergency (ER) | payer MEDICARE, BC, SELFPAY ==
--- NOTE | ~2024-02-06 | XR_ITS ---
EXAMINATION: XR chest 2V DATE: 02/06/2024 05:53 INDICATION: Cough. TECHNIQUE: Frontal and lateral views of the chest were obtained. COMPARISON: Chest single view 12/01/2023 FINDINGS: There is stable mild elevation of right hemidiaphragm. No pleural effusion or pneumothorax. Cardiomegaly is noted. There is a left chest wall pacer with leads in the right atrium and right terra tricle. Surgical clips in the right upper quadrant are likely from cholecystectomy. IMPRESSION: 1. Cardiomegaly. Reviewed, dictated and finalized at location A. IMPRESSION: 1. Cardiomegaly.
[2024-02-06 04:04] VITALS: BP 166/86; PULSE 58; RESP 16; TEMP 36.4; O2SAT 94
[2024-02-06 05:16] VITALS: BP 138/79; PULSE 53; RESP 18; O2SAT 95
[2024-02-06 05:57] LABS: Influenza A QL RT-PCR Negative (Negative); Influenza B QL RT-PCR Negative (Negative); RSV RNA, RT-PCR Negative (Negative); SARS-CoV-2 RNA PCR Negative (Negative)
--- NOTE | 2024-02-06 06:20 | ED.GENADULT ---
HPI - General Adult General Chief complaint: Unspecified Stated complaint: Cough x 1 month post surgical extubation Time Seen by Provider: 02/06/24 04:25 History of Present Illness HPI narrative: 88-year-old male presenting with cough. Patient states that he is coming from a facility and they were concerned about his cough is he has been having it for the last couple of weeks. States that he is diagnosed with COVID a couple weeks ago. He has had a cough since then. He states that he otherwise feels like his normal self. No further complaints. Related Data Home Medications Medication Instructions Recorded Confirmed mexiletine 250 mg capsule 250 mg PO TID 06/13/19 12/01/23 metoprolol succinate 50 mg 25 mg PO DAILY 08/12/22 12/01/23 tablet,extended release 24 hr acetaminophen 325 mg tablet 650 mg PO Q4H PRN Pain, Mild 12/01/23 12/01/23 cetirizine 10 mg tablet 10 mg PO DAILY PRN Allergic 12/01/23 12/01/23 Symptoms docusate sodium 100 mg capsule 100 mg PO DAILY 12/01/23 12/01/23 furosemide 20 mg tablet 20 mg PO DAILY 12/01/23 12/01/23 ibuprofen 600 mg tablet 600 mg PO Q4H PRN pain 12/01/23 12/01/23 levothyroxine 125 mcg tablet 62.5 mcg PO DAILY 12/01/23 12/01/23 omeprazole 20 mg tablet,delayed 20 mg PO DAILY 12/01/23 12/01/23 release ondansetron HCl 4 mg tablet 4 mg PO Q8H 12/01/23 12/01/23 oxycodone 5 mg tablet 5 mg PO Q6H PRN Pain 12/01/23 12/01/23 psyllium husk (with sugar) 3.4 1 ea PO DAILY PRN Constipation 12/01/23 12/01/23 gram oral powder packet (Metamucil (with sugar)) tamsulosin 0.4 mg capsule 0.4 mg PO DAILY 12/01/23 12/01/23 Allergies Allergy/AdvReac Type Severity Reaction Status Date / Time amiodarone Allergy Intermediate shakes Verified 02/06/24 04:10 Review of Systems Review of Systems: All systems reviewed & are unremarkable except as noted in HPI and below [facility] Past Medical History Medical History Anemia, chronic disease Benign essential hypertension Cardiomyopathy Clinical diagnosis of ARVC-D with equivocal findings for such on cardiac MRI though genetic panel was negative. TTE in November 2018 showed dilated and hypokinetic right ventricle with fairly normal left ventricle. Chronic diastolic heart failure Chronic kidney disease Gastroesophageal reflux disease History of placement of internal cardiac defibrillator Hypothyroidism Mixed hyperlipidemia Obstructive sleep apnea on CPAP Ventricular tachycardia Resuscitated ventricular tachycardia in 2003 after running status post ICD insertion with previous VT of lesions. Surgical History Surgical History History of appendectomy (2001) History of cardiac radiofrequency ablation For ventricular tachycardia per Dr. Vasquez at [facility]. History of cholecystectomy (2008) History of right inguinal hernia (11/16/19) Family History Family History Mother Family history of diabetes mellitus in first degree relative Family history of coronary artery disease Family history unknown, Onset Age: 87 Father Family history of cardiovascular disease, Onset Age: 76 Diabetes mellitus Grandparent Family history unknown Social History Social History Social History: Surrogate medical decision maker: Uzma So, daughter. Code status: Full code. Smoking packs per day: 1 Smoking cigarettes per day: 20.0 Years smoked: 13 Smoking pack-years: 13.00 Smoking status: Former smoker Tobacco type: cigarettes Second hand tobacco smoke exposure: No Smoking end date: 06/01/1965 Alcohol intake: former Drinks per week: 2 Substance use: never Do You Feel Safe in your Home?: Yes Lack of Transportation: No Lack of Food: Never True Current Housing: I Have Housing Concerned
[2024-02-06 06:28] VITALS: RESP 17; O2SAT 94
[2024-02-06 06:29] VITALS: BP 156/64; PULSE 54; PULSE 55; RESP 17; O2SAT 94
[2024-02-06 07:10] VITALS: BP 163/81; PULSE 56; RESP 23; O2SAT 96
--- NOTE | 2024-02-06 07:46 | PCCCNOTE ---
0746-Cab voucher given for the pt d/t lack of transportation back to [facility] non stop.-aman.
== END 2024-02-06 07:40 ==
PROVIDERS: Emergency Provider Emergency Medicine; PCP Family Medicine
DX: R05.9 Cough, unspecified (principal); U09.9 Post COVID-19 condition, unspecified; N18.9 Chronic kidney disease, unspecified; I50.32 Chronic diastolic (congestive) heart failure; I13.0 Hypertensive heart and chronic kidney disease with heart failure and stage 1 through stage 4 chronic kidney disease, or unspecified chronic kidney disease; K21.9 Gastro-esophageal reflux disease without esophagitis; E03.9 Hypothyroidism, unspecified; E78.5 Hyperlipidemia, unspecified; G47.33 Obstructive sleep apnea (adult) (pediatric); Z99.89 Dependence on other enabling machines and devices; Z87.891 Personal history of nicotine dependence; Z20.822 Contact with and (suspected) exposure to COVID-19
CPT/HCPCS: 71046; 87637; 99283; 99284

== ENCOUNTER 2024-02-26 17:27 | Emergency (ER) | payer MEDICARE, BC, SELFPAY ==
[2024-02-26 17:30] VITALS: BP 158/74; PULSE 63; RESP 20; TEMP 36.4; O2SAT 98
--- NOTE | 2024-02-26 19:03 | ED.WOUNDLAC ---
HPI - Wound/Laceration General Chief Complaint: Wound/Laceration Stated Complaint: wound Time Seen by Provider: 02/26/24 18:53 Source: patient Mode of arrival: ambulatory Limitations: no limitations History of Present Illness HPI narrative: This is an 88-year-old male who presents to the ED for chief complaint of skin tear to the left elbow that has been the continue sleep bleeding since initial injury 2 days ago. The patient is at assisted living and alert oriented x[facility]. Patient reports that he was trying to pull up the bed spread when he accidentally hit his elbow on edge. He has a small skin tear in this area that they have been unable to get the bleeding stopped. He takes Eliquis b.i.d.. Denies lightheadedness, syncope, fevers, chills, nausea, vomiting dizziness. States he is feeling fine otherwise. Related Data Home Medications Medication Instructions Recorded Confirmed mexiletine 250 mg capsule 250 mg PO TID 06/13/19 12/01/23 metoprolol succinate 50 mg 25 mg PO DAILY 08/12/22 12/01/23 tablet,extended release 24 hr acetaminophen 325 mg tablet 650 mg PO Q4H PRN Pain, Mild 12/01/23 12/01/23 cetirizine 10 mg tablet 10 mg PO DAILY PRN Allergic 12/01/23 12/01/23 Symptoms docusate sodium 100 mg capsule 100 mg PO DAILY 12/01/23 12/01/23 furosemide 20 mg tablet 20 mg PO DAILY 12/01/23 12/01/23 ibuprofen 600 mg tablet 600 mg PO Q4H PRN pain 12/01/23 12/01/23 levothyroxine 125 mcg tablet 62.5 mcg PO DAILY 12/01/23 12/01/23 omeprazole 20 mg tablet,delayed 20 mg PO DAILY 12/01/23 12/01/23 release ondansetron HCl 4 mg tablet 4 mg PO Q8H 12/01/23 12/01/23 oxycodone 5 mg tablet 5 mg PO Q6H PRN Pain 12/01/23 12/01/23 psyllium husk (with sugar) 3.4 1 ea PO DAILY PRN Constipation 12/01/23 12/01/23 gram oral powder packet (Metamucil (with sugar)) tamsulosin 0.4 mg capsule 0.4 mg PO DAILY 12/01/23 12/01/23 Allergies Allergy/AdvReac Type Severity Reaction Status Date / Time amiodarone Allergy Intermediate shakes Verified 02/06/24 04:10 Review of Systems Review of Systems: All systems as dictated in [facility] Past Medical History Medical History Anemia, chronic disease Benign essential hypertension Cardiomyopathy Clinical diagnosis of ARVC-D with equivocal findings for such on cardiac MRI though genetic panel was negative. TTE in November 2018 showed dilated and hypokinetic right ventricle with fairly normal left ventricle. Chronic diastolic heart failure Chronic kidney disease Gastroesophageal reflux disease History of placement of internal cardiac defibrillator Hypothyroidism Mixed hyperlipidemia Obstructive sleep apnea on CPAP Ventricular tachycardia Resuscitated ventricular tachycardia in 2003 after running status post ICD insertion with previous VT of lesions. Surgical History Surgical History History of appendectomy (2001) History of cardiac radiofrequency ablation For ventricular tachycardia per [place] [facility] [place]. History of cholecystectomy (2008) History of right inguinal hernia (11/16/19) Family History Family History Mother Family history of diabetes mellitus in first degree relative Family history of coronary artery disease Family history unknown, Onset Age: 87 Father Family history of cardiovascular disease, Onset Age: 76 Diabetes mellitus Grandparent Family history unknown Social History Social History Social History: Surrogate medical decision maker: Uzma So, daughter. Code status: Full code. Smoking packs per day: 1 Smoking cigarettes per day: 20.0 Years smoked: 13 Smoking pack-years: 13.00 Smoking status: Former smoker Tobacco type: cigarettes Second hand tobacco smoke exposure: No Smoking end
[2024-02-26 19:25] VITALS: BP 140/84; PULSE 60; RESP 16; TEMP 36.6; O2SAT 98
--- NOTE | 2024-02-26 20:59 | PC.NURSE ---
Patient states that he normally gets picked up by [facility] from ED. Called [facility] who advised their shuttle service stops at 1630.
[2024-02-26 21:32] VITALS: BP 127/74; PULSE 67; RESP 18; TEMP 36.6; O2SAT 99
== END 2024-02-26 22:13 ==
PROVIDERS: Emergency Provider Physician Assistant; PCP Family Medicine
DX: S51.012A Laceration without foreign body of left elbow, initial encounter (principal); I13.0 Hypertensive heart and chronic kidney disease with heart failure and stage 1 through stage 4 chronic kidney disease, or unspecified chronic kidney disease; N18.9 Chronic kidney disease, unspecified; I50.32 Chronic diastolic (congestive) heart failure; D63.8 Anemia in other chronic diseases classified elsewhere; E78.2 Mixed hyperlipidemia; K21.9 Gastro-esophageal reflux disease without esophagitis; G47.33 Obstructive sleep apnea (adult) (pediatric); Z95.810 Presence of automatic (implantable) cardiac defibrillator; Z87.891 Personal history of nicotine dependence; Z90.49 Acquired absence of other specified parts of digestive tract; Z79.01 Long term (current) use of anticoagulants; Z79.899 Other long term (current) drug therapy; W22.8XXA Striking against or struck by other objects, initial encounter
CPT/HCPCS: 99282